=== PATIENT | female | born 1945 | race Caucasian/White ===

== ENCOUNTER 2018-02-03 12:39 | Inpatient (IN) | payer OTHER ==
[~2018-02-03] VITALS: Ht 167.6 cm; Wt 71.0 kg
[~2018-02-03 12:39] MED LIST: ALBUTEROL2.5 MG/3 M INH/SOL; ARICEPT10 M1 PO; ATIVAN1 M1 PO; ATORVASTATIN CA20 M1 PO; B-12500 MC1 PO; BUPROPION XL300 M1 PO; COLACE100 M1 PO; DITROPAN XL5 M1 PO; DULOXETINE HCL60 MG PO; FLONASE ALLERG9.9 ML NASB; GABAPENTIN300 M2 PO; LIDODERM1 EACH TOP; LISINOPRIL5 M1 PO; MECLIZINE HCL12.5 M1 PO; NASONEX0.05 MG/Ac NAS; OMEPRAZOLE40 M1 PO; OXYCODONE HCL10 M2 PO; PRAVACHOL40 M1 PO; PROPRANOLOL HCL10 M1 PO; REQUIP2 M1 PO; TRAMADOL50 MG PO; TRAZODONE HCL100 M1 PO
--- NOTE | 2018-02-03 12:48 | ED MVC/FALL/TRAUMA COMPLAINT ---
History of Present Illness General Chief Complaint: Syncope and Near-Syncope Stated Complaint: NEAR SYNCOPE Source: patient, old records, EMS Exam Limitations: dementia Vital Signs & Intake/Output Vital Signs & Intake/Output Vital Signs Date Time Temp Pulse Resp B/P B/P Pulse O2 O2 Flow FiO2 Mean Ox Delivery Rate 02/03 1723 97.7 73 16 95/54 97 Room Air 02/03 1508 78 20 92/50 96 Room Air 02/03 1422 75 20 80/60 96 Room Air 02/03 1335 84/42 02/03 1249 74/42 02/03 1245 96 02/03 1244 97.7 77 18 83/42 94 Room Air Reconcile Medications Acetaminophen (Acephen) 650 MG SUPP.RECT 1 SUPP HI Q6H PRN PAIN/TEMP>101 ( Reported) Acetaminophen 325 MG TABLET 2 TAB PO Q6H PRN PAIN/TEMP>101 (Reported) Acetaminophen (Pain Reliever) 325 MG TABLET 2 TAB PO DAILY PAIN (Reported) Albuterol Sulfate 2.5 MG/3 ML (0.083 %) VIAL.NEB 1 Vial INH/ANDREIA Q6H PRN WHEEZING (Reported) Atorvastatin Calcium (Lipitor) 10 MG TABLET 1 TAB PO DAILY CHOLESTEROL ( Reported) Benzocaine (Anbesol) (Unknown Strength) LIQUID (Unknown Dose) PO 4XDAILY PRN GUMS (Reported) Bisacodyl (Dulcolax) 10 MG SUPP.RECT 1 SUP RC DAILY PRN CONSTIPATION ( Reported) Bupropion HCl (Bupropion XL) 300 MG TAB.ER.24H 1 TAB PO QAM MENTAL HEALTH ( Reported) Dextran 70/Hypromellose (Artificial Tears) (Unknown Strength) DROPERETTE ( Unknown Dose) OU TID BOTH EYES (Reported) Donepezil HCl (Aricept) 10 MG TABLET 1 TAB PO 0900 DEMENTIA (Reported) Duloxetine HCl 60 MG CAPSULE.DR 1 CAP PO DAILY MENTAL HEALTH (Reported) Ergocalciferol (Vitamin D2) (Vitamin D2) 50,000 UNIT CAPSULE 1 CAP PO Q30D SUPPLEMENT (Reported) Fluticasone Propionate (Flonase Allergy Relief) 50 MCG/ACTUATION SPRAY.SUSP 2 SPRAY NASB DAILY ALLERGIES (Reported) Gabapentin 300 MG CAPSULE 1 CAP PO QPM SLEEP (Reported) Hyoscyamine Sulfate (Levsin-Sl) 0.125 MG TAB.SUBL 1 TAB SL TID TREMORS ( Reported) Lidocaine (Lidoderm) 5 % ADH..PATCH 1 PAT TOP DAILY PAIN (Reported) may wear up to 12 hours Lisinopril 5 MG TABLET 1 TAB PO DAILY BP (Reported) LORazepam (Ativan) 1 MG TABLET 1 TAB PO TID ANXIETY (Reported) Mag Carb/Al Hydrox/Alginic AC (Gaviscon Extra Strength Liquid) (Unknown Strength ) ORAL.SUSP (Unknown Dose) PO Q6H PRN INDIGESTION (Reported) Meclizine HCl 12.5 MG TABLET 1 TAB PO BID DIZZINESS (Reported) Na Phos,M-B/Na Phos,Di-Ba (Fleet Enema) 19 GRAM-7 GRAM/118 ML ENEMA 1 E RC DAILY PRN CONSTIPATION (Reported) Naloxone HCl (Narcan) 4 MG/ACTUATION SPRAY 1 SPRAY JUAN AD PRN OPIOID INDUCED RESP. DEPRESSIO (Reported) Omeprazole 40 MG CAPSULE.DR 1 CAP PO DAILY ACID REFLUX (Reported) Oxycodone HCl 10 MG TABLET 1 TAB PO Q8 PAIN (Reported) Polyethylene Glycol 3350 (Miralax) 17 GRAM POWD.PACK 1 PAC PO DAILY GI ( Reported) dissolve in water Propranolol HCl 10 MG TABLET 1 TAB PO TID HTN (Reported) Ropinirole HCl (Requip) 2 MG TABLET 1 TAB PO QPM RESTLESS LEGS (Reported) Sennosides (Senna) 8.6 MG TABLET 1 TAB PO DAILY GI (Reported) Sodium Chloride (Nasal Moisturizing) 0.65 % SPRAY 1 SPRAY NASB TID PRN NASAL DRYNESS (Reported) Trazodone HCl 100 MG TABLET 1 TAB PO QPM SLEEP (Reported) Triage Note: PT STATES SHE TOOK HERSELF TO THE BATHROOM IN THE [facility] AND LOST HER BALANCE AND HIT HER HAD ON THE DOOR. BS 119 PER EMS. PT DID NOT MAKE STAFF AWARE THAT SHE HIT HER HEAD. STAFF NOTED SHE HAS BRUISE TO RIGHT EYEBROW. Triage Nurses Notes Reviewed? yes Onset: Abrupt Duration: day(s): (1), constant Timing: recent history Severity: mild, moderate Severity Numbers: 1 Injuries/Fall Location: face Method of Injury: fall Loss of Consciousness: unsure No Modifying Factors: none Associated Symptoms: denies HPI: 72 year-old female with past medical history significant for dementia, Meniere's disease, and essential tremor biba s/p unwitnessed fall at [facility]. pt presents with hematoma to r side of face. she denies pain from fall. on arrival pt noted to be hypotensive however awake. she denies chest pain, abd pain, arm or lower extremity injury. unsure of loc. (Joe Blankenship) Allergies Coded Allergies: divalproex sodium (From DEPAKOTE) (UNKNOWN PER W-10 02/03/18) doxycycline (UNKNOWN 05/18/17) Uncoded Allergies: MOLD (UNKNOWN 06/11/12) (Murphy Reyna DO) Past History Travel History Traveled to [place] past 21 day No Medical History Any Pertinent Medical History? see below for history Neurological: dementia EENT: MENIERES DISEASE Respiratory: SOB Renal: OVERACTIVE BLADDER Musculoskeletal: falls Cancer(s): lung cancer History of MRSA: No History of VRE: No History of CDIFF: No Pneumonia Vaccine: 07/08/10 Influenza Vaccine: 07/08/10 Surgical History Surgical History: non-contributory Psychosocial History Who do you live with Daughter Services at Home Nursing What is your primary language Indonesian Tobacco Use: Quit >30 days ago ETOH Use: denies use Illicit Drug Use: denies illicit drug use Family History Family History, If Any: MOTHER ( mother had pancreatic cancer father had stroke and MD). Hx Contributory? No (Joe Blankenship) Review of Systems Review of Systems Constitutional: Reports: no symptoms, see HPI. Comments Review of systems: unobtainable secondary to dementia (Joe Blankenship) Physical Exam Physical Exam General Appearance: no apparent distress Comments: Well-developed well-nourished person in no acute distress HEENT: Normal EENT exam; PERRL, EOMI, no nystagmus. Small hematoma noted to the right lateral eyebrow no bleeding versus scalp is atraumatic. moist mucous membranes. Neck: Supple, nontender normal range of motion without pain or tenderness Back: Nontender, no CVA tenderness. Full range of motion Cardiovascular: Regular rate and rhythms no murmurs rubs or gallops, normal JVP Respiratory: Chest nontender.There were no bony deformities, no asymmetry. No respiratory distress. Patient speaking in full complete sentences. Breath sounds clear to auscultation bilaterally: NO W/R/R Abdomen: Soft, nontender nondistended, no appreciable organomegaly. Normal bowel sounds. No rebound/guarding, No appreciable enlargement of the abdominal aorta, No ascites. Rectal: Nontender. Heme negative stool. No mass/hemorrhoid, no fissure. Shoulder: Atraumatic/Stable. FROM . Elbow: Atraumatic/stable. FROM. No laxity Upper arm/Forearm: Atraumatic. Nontender. No edema, 5 out of 5 machine striper strength noted to bilateral upper extremities Hand/Wrist: Atraumatic/stable. Skin intact. FROM Pulses: Normal/equal radial pulses bilaterally. Brisk cap refill Hip/Pelvis: Atraumatic/Stable. FROM. No pain with pelvic compression Knee: Atraumatic/stable. FROM. No joint swelling, no effusion. No laxity. Negative fernando/anterior drawer test. No pain with ROM Leg: Atraumatic. Nontender. No edema, 5 out of 5 strength in the lower extremity, normal dorsiflexion of great toe bilaterally, gross sensation is intact, patellar tendon reflex 2+ bilaterally. Ankle/Foot: Atraumatic/stable. Skin intact. FROM. No swelling, no effusion. No laxity on exam Pulses: Normal/equal DP/PT pulses bilaterally. Brisk cap refill Neuro: Alert oriented x3, motor sensory normal, cranial nerves II through XII grossly intact. There were no obvious focal neurologic abnormalities. Skin: No appreciable rash on exposed skin, skin is warm and dry. Psych: Mood and affect is normal, memory and judgment is normal. Core Measures ACS in differential dx? Yes CVA/TIA Diagnosis No Sepsis Present: No Sepsis Focused Exam Completed? No (Dianne LOZANO,Joe) Progress Differential Diagnosis: abd injury, C/T/L spine injury, ext injury, ICH, pelvis injury, spinal cord injury, GI BLEED, DEHYDRATION, MILAN Plan of Care: Orders Procedure Date/time Status Nothing by Mouth 02/04 B Active ICU LAB BUNDLE 02/04 0600 Active CBC WITHOUT DIFFERENTIAL 02/04 0600 Active TROPONIN LEVEL 02/03 1900 Active CBC WITHOUT DIFFERENTIAL 02/03 1900 Active EKG 02/03 1900 Active Pathway - chart 02/03 1851 Active Pathway - chart 02/03 1702 Active Pathway - chart 02/03 1701 Active Patient Data 02/03 1635 Active ED Holding Orders 02/03 1623 Active Admit to inpatient 02/03 1623 Active Vital Signs 02/03 1623 Active Code Status 02/03 1623 Active Patient Data 02/03 1620 Active Bolanos, Insertion/Removal/Asses 02/03 1432 Active Add-on Test (ER Only) 02/03 1324 Active TYPE & SCREEN (NOT X-MATCH) 02/03 1324 Complete Intake & Output 02/03 1303 Active Saline Lock 02/03 1256 Active CULTURE,URINE 02/03 1256 Active URINE DRUG SCREEN FOR ER ONLY 02/03 1256 Complete PROTHROMBIN TIME 02/03 1253 Complete URINALYSIS 02/03 1247 Complete Telemetry/Scrum Product Owner 02/03 1242 Active TROPONIN LEVEL 02/03 1242 Complete COMPREHENSIVE METABOLIC PANEL 02/03 1242 Complete CBC WITHOUT DIFFERENTIAL 02/03 1242 Complete EKG 02/03 1242 Active Saline Lock 02/03 UNK Active House Staff 02/03 UNK Active VTE Mechanical Prophylaxis 02/03 UNK Active Patient Safety Monitor 02/03 UNK Active Hemoccult 02/03 UNK Active EKG 02/03 UNK Active Current Medications Sig/Lloyd Start time Last Medication Dose Stop Time Status Admin Atorvastatin Calcium 10 MG DAILY 02/04 0900 AC (Lipitor) Donepezil HCl 10 MG 0900 02/04 0900 AC (Aricept) Gabapentin 300 MG QPM 02/03 2100 AC (Neurontin) Lorazepam 1 MG TID 02/03 2100 AC (Ativan) Meclizine HCl 12.5 MG BID 02/03 2100 AC (Antivert) Lidocaine 1 PAT DAILY@1900 02/03 1900 AC (Lidoderm) Acetaminophen 650 MG Q6H PRN 02/03 1845 AC (Tylenol) Sodium Chloride 1,000 ML Q13H 02/03 1800 AC (Normal Saline 0.9%) Pantoprazole Sodium 40 MG Q5H 02/03 1715 AC (Protonix) Sodium Chloride 100 ML (Normal Saline 0.9%) Phytonadione 5 MG DAILY 02/03 170 AC (Mephyton 5MG Tab) Laboratory Tests 02/03/18 1504: Urine Opiates Screen 1095.00, Methadone Screen 106, Barbiturate Screen < 60, Ur Phencyclidine Scrn 9.80, Amphetamines Screen 894, U Benzodiazepines Scrn < 85, Urine Cocaine Screen < 50, Urine Cannabis Screen < 5.00, Urinalysis LIGHT H, Urine Color YEL, Urine Clarity HAZY H, Urine pH 6.0, Ur Specific [place] >= 1.030, Urine Protein TRACE H, Urine Ketones NEG, Urine Nitrite NEG, Urine Bilirubin NEG, Urine Urobilinogen 0.2, Ur Leukocyte Esterase TRACE H, Ur Microscopic SEDIMENT EXAMINED, Urine RBC 1-3, Urine WBC 1-3 H, Ur Epithelial Cells FEW, Hyaline Casts FEW H, Urine Mucus MOD H, Urine Hemoglobin TRACE- INTACT, Urine Glucose NEG 02/03/18 1351: PT 14.1 H, INR 1.29 H 02/03/18 1253: Anion Gap 12, Estimated GFR 26 L, BUN/Creatinine Ratio 20.0, Glucose 110 H, Calcium 9.0, Total Bilirubin 0.3, AST 13 L, ALT 23, Alkaline Phosphatase 102, Troponin I < 0.01, Total Protein 5.1 L, Albumin 2.4 L, Globulin 2.7, Albumin/ Globulin Ratio 0.9 L, CBC w Diff NO MAN DIFF REQ, RBC 3.21 L, MCV 75.7 L, MCH 24.0 L, MCHC 31.8 L, RDW 17.7 H, MPV 7.8, Gran % 75.4 H, Lymphocytes % 14.3 L, Monocytes % 8.0, Eosinophils % 1.6, Basophils % 0.7, Absolute Granulocytes 10.1 H, Absolute Lymphocytes 1.9, Absolute Monocytes 1.1 H, Absolute Eosinophils 0.2, Absolute Basophils 0.1 Microbiology 02/03 1504 URINE ROUT: Urine Culture - RECD Labs ordered old records reviewed (Patient seen and evaluated by Dr. reyna-- IV fluids running call placed to GI patient is a Jehovah witness and his declining any blood products 1330 I spoke with [facility] pts daughter eloina over the phone to update her of her mothers care- dr reyna spoke with dr prince who advised pt be admitted to icu. pending ct scans 1545- DR prince in room to eval pt.i spoekw ith dr concepcion will admit to icu Diagnostic Imaging: Viewed by Me: CT Scan. Discussed w/RAD: CT Scan. Radiology Impression: PATIENT: HILDA GORDON PRESENT AGE: 72 PATIENT ACCOUNT NO: [id number] : 44 LOCATION: [facility] ORDERING PHYSICIAN: Joe LOZANO SERVICE DATE: 02/03/18 EXAM TYPE: CAT - CT CERV SPINE WO IV CONTRAST; CT HEAD WO IV CONTRAST EXAMINATION: CT HEAD AND CERVICAL SPINE WITHOUT CONTRAST CLINICAL INFORMATION: History of fall. Dementia. Trauma to the head. COMPARISON: CT of the head done on 02/13/[address] of the cervical spine done on 03/25/2013. TECHNIQUE: Noncontrast CT scan of the head and cervical spine, using standard protocol. Multiplanar reconstructed images are obtained. Multiplanar reconstructed images are also obtained. DLP: 614.25 mGy-cm. FINDINGS: CT OF THE HEAD: Age-appropriate mild diffuse cortical atrophy and mild chronic microvascular deep white matter ischemic changes are present. Specifically, no evidence of intra-axial mass, mass effect, extra-axial fluid collection, midline shift, acute intraparenchymal hemorrhage and/or acute infarction present. Both orbital globes, extraocular muscles, optic nerves appear bilaterally symmetric and are unremarkable. The bilateral mastoid air cells appear unremarkable. CT OF THE CERVICAL SPINE: Grade 1 anterolisthesis of C5 over C6 is noted. Unchanged since prior study dated 03/25/2013. Mild-to- moderate mid cervical dextroscoliosis is noted. Multilevel degenerative spondylosis-related changes are noted throughout the entire cervical spine. Significant facet joint arthritic changes are noted bilaterally throughout the entire cervical spine. There is no evidence of any fracture or traumatic subluxation present. There is no prespinal soft tissue hematoma seen. The visualized lung apices are remarkable for presence of a nonspecific irregular ill-defined spiculated opacity seen at left lung apex, not optimally characterized. Followup chest radiograph may be considered for further clarification, if clinically appropriate. IMPRESSION: 1. No acute intracranial pathology. 2. No CT evidence of any acute fracture or traumatic subluxation or prespinal soft tissue hematoma present at the cervical spine. 3. Abnormal left lung apex. Followup chest radiograph may be considered for further full detailed evaluation, if clinically appropriate. DICTATED BY: Wan Jones MD DATE/TIME DICTATED:02/03/181457 CLAIM APPROVER:LB DATE/TIME TRANSCRIBED:1457 CONFIDENTIAL, DO NOT COPY WITHOUT APPROPRIATE AUTHORIZATION. < Electronically signed in Other Vendor System> SIGNED BY: Wan Jones MD 02/03/18 1528, PATIENT: HILDA GORDON PRESENT AGE: 72 PATIENT ACCOUNT NO: [id number] : 44 LOCATION: [facility] ORDERING PHYSICIAN: Joe LOZANO SERVICE DATE: 02/03/18 EXAM TYPE: CAT - CT ABD & PELVIS W/O IV CONTRAS; CT CHEST WO IV CONTRAST EXAMINATION: CT CHEST, ABDOMEN AND PELVIS WITHOUT CONTRAST CLINICAL INFORMATION: Dementia. Status post fall. Trauma to the head. COMPARISON: CT of the chest done on 02/15/[address] of the abdomen and pelvis done on 03/25/2013. TECHNIQUE: Multidetector volumetric imaging was performed from the thoracic inlet through the pubic symphysis without administration of any contrast. DLP: 696.8 mGy-cm. FINDINGS: VISUALIZED NECK: Unremarkable. LUNGS: There is a spiculated 4.1 x 1.4 cm mass identified at left lung apex, previously measured 3.1 x 1.7 cm on the study dated 02/15/2017, consistent with interval progression of presumed clinically known left upper lobar lung neoplasm. The second lobulated oval-shaped mass seen at left lower lobe of the lung currently measures 3.5 x 3.4 cm, previously measured 3.1 x 2.1 cm, also consistent with interval progression of presumed metastatic or second primary lung neoplasm. There is a tiny 3 to 4 mm solid-appearing nodule identified adjacent to this dominant mass, unchanged. The tracheobronchial tree appeared patent. Hypoventilatory changes are noted at both lung bases. MEDIASTINUM: Atherosclerotic disease including coronary arterial calcifications are noted, similar to prior study. There are no pathologically enlarged mediastinal and/or hilar lymphadenopathy present. Lobulated anterior mediastinal soft tissue density likely represents a vessel, unchanged. PLEURA: There is no pleural effusion. No pleural mass or thickening. AXILLA: No lymphadenopathy LIVER, GALLBLADDER, BILIARY TREE: Unremarkable on this nonenhanced study. PANCREAS: Unremarkable on this nonenhanced study. SPLEEN: Unremarkable. ADRENAL GLANDS AND KIDNEYS: Multiple cortical renal cysts are noted. The left kidney appears electively atrophied, unchanged. URETERS AND BLADDER: Unremarkable. BOWEL LOOPS: Decompressed. Colonic diverticulosis is present. LYMPHOVASCULAR STRUCTURES: No pathologically enlarged retroperitoneal, mesenteric, pelvic, inguinal and/or groin lymphadenopathy present, unchanged. PELVIS: There is no pelvic mass present. There is no free fluid and/or free air present. Specifically, no evidence of any hematoma present. BONES: Interval development of a healing fracture identified involving the posterior medial aspect of the left 6th rib, new since 02/15/2017. Differential includes posttraumatic versus metastatic pathological fracture. IMPRESSION: 1. Technically limited study due to lack of intravenous contrast. 2. Previously documented, clinically known presumed primary left upper lobar lung neoplasm and a second primary versus intrapulmonary metastatic disease within the left lower lobe of the lung shows interval progression since most recent prior study dated 02/15/2017. 3. No CT evidence of any superimposed acute intrathoracic or intra-abdominal or intrapelvic pathology is present. 4. Note is, however, made of a new healing fracture involving posteromedial aspect of the left 6th rib, may represent posttraumatic versus pathological fracture. DICTATED BY: Wan Jones MD DATE /TIME DICTATED:02/03/181508 CLAIM APPROVER:LB DATE/TIME TRANSCRIBED: 02/03/181508 CONFIDENTIAL, DO NOT COPY WITHOUT APPROPRIATE AUTHORIZATION. < Electronically signed in Other Vendor System> SIGNED BY: Wan Jones MD 02/03/18 1541 Initial ED EKG: normal intervals, normal p-waves, normal QRS complex, normal sinus rhythm Prior EKG: unchanged Rhythm Strip: normal sinus rhythm (Joe Blankenship) Departure Departure Time of Disposition: 1547 Disposition: STILL A PATIENT Condition: Stable Clinical Impression Primary Impression: GI bleed Secondary Impressions: MILAN (acute kidney injury), Fall, Lung mass Referrals: Clara Mccarthy MD (PCP/Family) Departure Forms: Customer Survey General Discharge Information Admission Note Spoke With: Woodrow Concepcion MD Documentation of Exam: Documentation of any treatments & extenuating circumstances including Concerns Regarding Discharge (functional status, medication knowledge or non-compliance, living conditions, etc.) that warrant an admission rather than observation: GI CONSULT, PROB ENDOSCOPY/COLONOSCOPY, TREND LABS, IV FLUIDS, PREMATURE DISCHARGE WOULD BE MEDICALLY HARMFUL (Joe Blankenship) Departure Comments 02/03/18 1:40 PM I have seen and personally examined the patient and I agree with the PAs evaluation. She presented to the emergency department hypotensive after a near syncopal episode at the [facility]. She is pleasantly confused but hypotensive. Abdomen is soft and nontender. She was guaiac positive. She has a hemoglobin of 7. I spoke with Dr. Herndon who will be in to evaluate the patient. She is a Yarsani and after speaking with the family they confirm that she is full code but not to have any blood products. PA/CANOPY INSPECTOR Co-Sign Statement Statement: ED Attending supervision documentation- [x] I saw and evaluated the patient. I have also reviewed all the pertinent lab results and diagnostic results. I agree with the findings and the plan of care as documented in the PA's/CANOPY INSPECTOR's documentation. [] I have reviewed the ED Record and agree with the PA's/CANOPY INSPECTOR's documentation. [] Additions or exceptions (if any) to the PAs/CANOPY INSPECTOR's note and plan are summarized below: [] (Axel AMEZCUA,Murphy Baumann) Critical Care Note Critical Care Note Critical Care Time: 30-74 min (Joe Blankenship)
[2018-02-03 13:07] LABS: ABSOLUTE BASOPHIL COUNT 0.1 /CUMM (0.0-0.2); ABSOLUTE EOSINOPHIL COUNT 0.2 /CUMM (0.0-0.7); ABSOLUTE GRANULOCYTE CT 10.1 /CUMM (1.4-6.5); ABSOLUTE LYMPH COUNT 1.9 /CUMM (1.2-3.4); ABSOLUTE MONOCYTE COUNT 1.1 /CUMM (0.10-0.60); BASOPHIL % 0.7 % (0.0-2.0); EOSINOPHIL % 1.6 % (0-5); GRANULOCYTE % 75.4 % (42.2-75.2); HEMATOCRIT 24.3 % (37-47); MEAN CORPUSCULAR HGB CONC 31.8 G/DL (33.0-37.0); MEAN CORPUSCULAR VOLUME 75.7 FL (81.0-99.0); MEAN PLATELET VOLUME 7.8 FL (7.4-10.4); PLATELET COUNT 435 /CUMM (130-400); RBC DISTRIBUTION WIDTH 17.7 % (11.5-14.5); RED BLOOD CELL CT 3.21 /CUMM (4.20-5.40); WHITE BLOOD CELL COUNT 13.4 /CUMM (4.8-10.8)
[2018-02-03] MEDS ORDERED: LIPITOR10 M1 PO (13:39)
[2018-02-03] MEDS ORDERED: ANBESOL12 ML PO (13:41)
[2018-02-03] MEDS ORDERED: GAVISCON EXTRA355 ML PO (13:44)
[2018-02-03] MEDS ORDERED: DULCOLAX10 M1 RC (13:45)
[2018-02-03] MEDS ORDERED: FLEET ENEMA133 ML RC (13:45)
[2018-02-03] MEDS ORDERED: LEVSIN-SL0.125 MG SL (13:46)
[2018-02-03] MEDS ORDERED: ALBUTEROL2.5 MG/3 M INH/SOL (13:52)
[2018-02-03] MEDS ORDERED: NASAL MOISTURIZ88 ML NASB (13:53)
[2018-02-03] MEDS ORDERED: ARTIFICIAL TEA1 EACH OU (13:53)
[2018-02-03] MEDS ORDERED: LISINOPRIL5 M1 PO (13:54)
[2018-02-03] MEDS ORDERED: MIRALAX17 G1 PO (13:55)
[2018-02-03] MEDS ORDERED: SENNA8.6 M3 PO (13:56)
[2018-02-03] MEDS ORDERED: REQUIP2 M1 PO (13:56)
[2018-02-03] MEDS ORDERED: VITAMIN D250000 UNIT PO (13:58)
[2018-02-03] MEDS ORDERED: ACEPHEN650 M1 PR (13:59)
[2018-02-03] MEDS ORDERED: ACETAMINOPHEN325 M2 PO (14:00)
[2018-02-03] MEDS ORDERED: PAIN RELIEVER325 MG PO (14:01)
[2018-02-03] MEDS ORDERED: NARCAN4 MG NAS (14:03)
[2018-02-03 14:26] LABS: PT 14.1 SEC (9.4-12.5)
--- NOTE | 2018-02-03 15:05 | Cons- Gastroenterology ---
See Addendum General Information and HPI Consulting Request Date of Consult: 02/03/18 Requested By: Dr. Pinzon Reason for Consult: 1. Acute blood loss anemia 2. Hemoccult positive stool 3. Syncope, presumably due to #1 4. Precipitous drop in hematocrit 5. Coagulopathy Source of Information: electronic medical record, emergency department physician Dr. Reyna Exam Limitations: unable to give history History of Present Illness: Patient is a 72-year-old female who was brought to [facility] from the [facility] after having had a syncopal episode. Patient is unable to provide history (due to dementia) so it is provided by the electronic medical record and Dr. Reyna, attending physician in the ED. Upon arrival in the ED patient was found to be orthostatic blood pressure. She had brown stool in the vault which was grossly Hemoccult positive. She had been found to have a marked decrease in her H&H as well as an increase in BUN/ creatinine. Patient last underwent colonoscopy in [address] Carlitos Orozco. She was found to have extensive left-sided diverticulosis as well as a small sessile polyp that was a benign tubular adenoma. She had an EGD in 2011 that was unremarkable. Biopsies were negative for H. Pylori. Additional PMH is significant for a history of falls, hyperlipidemia, and a personal history of adenomatous colonic polyps, hyperparathyroidism. Per the electronic medical record she was diagnosed adenocarcinoma of the left lung. PET/CT 06/03/2014: increased metabolic uptake in the left lower lung, as well as anterior mediastinal nodes and base of cecum versus stool, along with nonspecific uptake in the right scapula at the site of the patient's previous right shoulder replacement. However, biopsies from a bronchoscopy of that year were negative for malignant cells. The patient has a history of pancreatic cysts, with numerous endoscopic ultrasounds at [facility] by Dr. Zhang, last on 04/29/2012: 9 mm pancreatic cyst at the neck with side branch features of IPMN. I discussed with the daughter the status of Ms. Knight's lung cancer. The patient has not been seen by Dr. Sol since 2013. At that time a decision was made not to treat her lung cancer since the lesions were small and it was felt that the AcipHex of either chemotherapy or diffuse radiation therapy on her pulmonary status would far outweigh the benefits of either modality of therapy. The patient's daughter has recently tried to reestablish care with Dr. Salinas as patient has been complaining of chest pain. Patient has not had any hemoptysis. However she has not had a PET scan nor chest CT scans since 2013. Allergies/Medications Allergies: Coded Allergies: divalproex sodium (From DEPAKOTE) (UNKNOWN PER W-10 02/03/18) doxycycline (UNKNOWN 05/18/17) Uncoded Allergies: MOLD (UNKNOWN 06/11/12) Home Med List: Acetaminophen (Acephen) 650 MG SUPP.RECT 1 SUPP AR Q6H PRN PAIN/TEMP>101 ( Reported) Acetaminophen 325 MG TABLET 2 TAB PO Q6H PRN PAIN/TEMP>101 (Reported) Acetaminophen (Pain Reliever) 325 MG TABLET 2 TAB PO DAILY PAIN (Reported) Albuterol Sulfate 2.5 MG/3 ML (0.083 %) VIAL.NEB 1 Vial INH/ANDREIA Q6H PRN WHEEZING (Reported) Atorvastatin Calcium (Lipitor) 10 MG TABLET 1 TAB PO DAILY CHOLESTEROL ( Reported) Benzocaine (Anbesol) (Unknown Strength) LIQUID (Unknown Dose) PO 4XDAILY PRN GUMS (Reported) Bisacodyl (Dulcolax) 10 MG SUPP.RECT 1 SUP RC DAILY PRN CONSTIPATION ( Reported) Bupropion HCl (Bupropion XL) 300 MG TAB.ER.24H 1 TAB PO QAM MENTAL HEALTH ( Reported) Dextran 70/Hypromellose (Artificial Tears) (Unknown Strength) DROPERETTE ( Unknown Dose) OU TID BOTH EYES (Reported) Donepezil HCl (Aricept) 10 MG TABLET 1 TAB PO 0900 DEMENTIA (Reported) Duloxetine HCl 60 MG CAPSULE.DR 1 CAP PO DAILY MENTAL HEALTH (Reported) Ergocalciferol (Vitamin D2) (Vitamin D2) 50,000 UNIT CAPSULE 1 CAP PO Q30D SUPPLEMENT (Reported) Fluticasone Propionate (Flonase Allergy Relief) 50 MCG/ACTUATION SPRAY.SUSP 2 SPRAY NASB DAILY ALLERGIES (Reported) Gabapentin 300 MG CAPSULE 1 CAP PO QPM SLEEP (Reported) Hyoscyamine Sulfate (Levsin-Sl) 0.125 MG TAB.SUBL 1 TAB SL TID TREMORS ( Reported) Lidocaine (Lidoderm) 5 % ADH..PATCH 1 PAT TOP DAILY PAIN (Reported) may wear up to 12 hours Lisinopril 5 MG TABLET 1 TAB PO DAILY BP (Reported) LORazepam (Ativan) 1 MG TABLET 1 TAB PO TID ANXIETY (Reported) Mag Carb/Al Hydrox/Alginic AC (Gaviscon Extra Strength Liquid) (Unknown Strength ) ORAL.SUSP (Unknown Dose) PO Q6H PRN INDIGESTION (Reported) Meclizine HCl 12.5 MG TABLET 1 TAB PO BID DIZZINESS (Reported) Na Phos,M-B/Na Phos,Di-Ba (Fleet Enema) 19 GRAM-7 GRAM/118 ML ENEMA 1 E RC DAILY PRN CONSTIPATION (Reported) Naloxone HCl (Narcan) 4 MG/ACTUATION SPRAY 1 SPRAY JUAN AD PRN OPIOID INDUCED RESP. DEPRESSIO (Reported) Omeprazole 40 MG CAPSULE.DR 1 CAP PO DAILY ACID REFLUX (Reported) Oxycodone HCl 10 MG TABLET 1 TAB PO Q8 PAIN (Reported) Polyethylene Glycol 3350 (Miralax) 17 GRAM POWD.PACK 1 PAC PO DAILY GI ( Reported) dissolve in water Propranolol HCl 10 MG TABLET 1 TAB PO TID HTN (Reported) Ropinirole HCl (Requip) 2 MG TABLET 1 TAB PO QPM RESTLESS LEGS (Reported) Sennosides (Senna) 8.6 MG TABLET 1 TAB PO DAILY GI (Reported) Sodium Chloride (Nasal Moisturizing) 0.65 % SPRAY 1 SPRAY NASB TID PRN NASAL DRYNESS (Reported) Trazodone HCl 100 MG TABLET 1 TAB PO QPM SLEEP (Reported) Current Medications: Current Medications Sig/Lloyd Start time Last Medication Dose Route Stop Time Status Admin Sodium Chloride 1,000 ML BOLUS ONE 02/03 1430 AC 02/03 IV 02/03 1529 1425 Sodium Chloride 1,000 ML BOLUS ONE 02/03 1300 DC 02/03 IV 02/03 1359 1302 Past History Travel History Traveled to [place] past 21 day No Medical History Neurological: dementia EENT: MENIERES DISEASE Respiratory: SOB Renal: OVERACTIVE BLADDER Musculoskeletal: falls Cancer(s): lung cancer Surgical History Surgical History: non-contributory Family History Relations & Conditions If Any: MOTHER ( mother had pancreatic cancer father had stroke and VT). Psychosocial History Services at Home: Nursing ETOH Use: denies use Illicit Drug Use: denies illicit drug use Review of Systems Review of Systems: Today we'll to obtain review of systems given patient's dementia. Exam & Diagnostic Data Vital Signs and I&O Vital Signs Date Time Temp Pulse Resp B/P B/P Pulse O2 O2 Flow FiO2 Mean Ox Delivery Rate 02/03 1422 75 20 80/60 96 Room Air 02/03 1335 84/42 02/03 1249 74/42 02/03 1245 96 02/03 1244 97.7 77 18 83/42 94 Room Air Intake & Output 02/03 1600 02/03 0400 02/02 0400 02/01 0400 Intake Total 1000 Output Total Balance 1000 Intake, IV 1000 Patient 158 lb Weight Weight Estimated Measurement Method Physical Exam General Appearance: alert, awake, comfortable Head: atraumatic, normal appearance Eyes: Bilateral: normal appearance. Ears, Nose, Throat: hearing grossly normal, poor dentition Neck: normal inspection, supple Respiratory: normal breath sounds, no respiratory distress, lungs clear Cardiovascular: regular rate/rhythm Gastrointestinal: normal bowel sounds, soft, non-tender, no organomegaly Rectal: per ED, brown stool, hemoccult positive Neurologic/Psych: disoriented x 3 Cranial Nerves: normal hearing, normal speech, cranial nerves II-XII grossly intact Skin: intact, normal color, warm/dry Results Pertinent Lab Results: Laboratory Tests 02/03 02/03 1504 1351 Coagulation PT (9.4 - 12.5 SEC) 14.1 H INR (0.90 - 1.19) 1.29 H Toxicology Urine Opiates Screen (>2000 NG/ML) 1095.00 Methadone Screen (>300 NG/ML) 106 Barbiturate Screen (>200 NG/ML) < 60 Ur Phencyclidine Scrn (>25 NG/ML) 9.80 Amphetamines Screen (>1000 NG/ML) 894 U Benzodiazepines Scrn (>200 NG/ML) < 85 Urine Cocaine Screen (>300 NG/ML) < 50 Urine Cannabis Screen (>50 NG/ML) < 5.00 Urines Urinalysis LIGHT H Urine Color (YEL,AMB,STR) YEL Urine Clarity (CLEAR) HAZY H Urine pH (5.0 - 8.0) 6.0 Ur Specific Newton (1.001 - 1.035) >= 1.030 Urine Protein (NEG,<30 MG/DL) TRACE H Urine Ketones (NEG) NEG Urine Nitrite (NEG) NEG Urine Bilirubin (NEG) NEG Urine Urobilinogen (0.1 - 1.0 EU/dl) 0.2 Ur Leukocyte Esterase (NEG) TRACE H Ur Microscopic SEDIMENT EXAMINED Urine RBC (0 - 5 /HPF) 1-3 Urine WBC (0 - 2 /HPF) 1-3 H Ur Epithelial Cells (NONE,FEW) FEW Hyaline Casts (0/LPF) FEW H Urine Mucus (FEW,NONE) MOD H Urine Hemoglobin (NEG) TRACE-INTACT Urine Glucose (N MG/DL) NEG 02/03 1253 Chemistry Sodium (137 - 145 mmol/L) 142 Potassium (3.5 - 5.1 mmol/L) 4.2 Chloride (98 - 107 mmol/L) 108 H Carbon Dioxide (22 - 30 mmol/L) 22 Anion Gap (5 - 16) 12 BUN (7 - 17 mg/dL) 38 H Creatinine (0.5 - 1.0 mg/dL) 1.9 H Estimated GFR (>60 ml/min) 26 L BUN/Creatinine Ratio (7 - 25 %) 20.0 Glucose (65 - 99 mg/dL) 110 H Calcium (8.4 - 10.2 mg/dL) 9.0 Total Bilirubin (0.2 - 1.3 mg/dL) 0.3 AST (14 - 36 U/L) 13 L ALT (9 - 52 U/L) 23 Alkaline Phosphatase (<127 U/L) 102 Troponin I (< 0.11 ng/ml) < 0.01 Total Protein (6.3 - 8.2 g/dL) 5.1 L Albumin (3.5 - 5.0 g/dL) 2.4 L Globulin (1.9 - 4.2 gm/dL) 2.7 Albumin/Globulin Ratio (1.1 - 2.2 %) 0.9 L Hematology CBC w Diff NO MAN DIFF REQ WBC (4.8 - 10.8 /CUMM) 13.4 H RBC (4.20 - 5.40 /CUMM) 3.21 L Hgb (12.0 - 16.0 G/DL) 7.7 L Hct (37 - 47 %) 24.3 L MCV (81.0 - 99.0 FL) 75.7 L MCH (27.0 - 31.0 PG) 24.0 L MCHC (33.0 - 37.0 G/DL) 31.8 L RDW (11.5 - 14.5 %) 17.7 H Plt Count (130 - 400 /CUMM) 435 H MPV (7.4 - 10.4 FL) 7.8 Gran % (42.2 - 75.2 %) 75.4 H Lymphocytes % (20.5 - 51.1 %) 14.3 L Monocytes % (1.7 - 9.3 %) 8.0 Eosinophils % (0 - 5 %) 1.6 Basophils % (0.0 - 2.0 %) 0.7 Absolute Granulocytes (1.4 - 6.5 /CUMM) 10.1 H Absolute Lymphocytes (1.2 - 3.4 /CUMM) 1.9 Absolute Monocytes (0.10 - 0.60 /CUMM) 1.1 H Absolute Eosinophils (0.0 - 0.7 /CUMM) 0.2 Absolute Basophils (0.0 - 0.2 /CUMM) 0.1 Assessment/Plan Assessment/Recommendations: ASSESSMENT: 1. Acute drop in hemoglobin and hematocrit 2. Acute blood loss anemia, suspect upper GI bleed although patient had Hemoccult-positive stool which was brown is unusual to have syncope in this setting of a chronic slow lower GI bleed. One must also consider whether blood loss is related to underlying lung cancer. 3. Coagulopathy, mild 4. Lung Cancer, Status unknown 5. Dementia 6. Spiritism RECOMMENDATIONS: 1. Protonix drip 2. Serial H&H 3. Transfuse as needed to keep H&H between 7 and 8 4. Vitamin K 5. Consider Chest CT given unknown status of lung cancer and patient's complaint of chest pains 6. I have discussed possible EGD with healthcare proxy. Pending results of EGD we'll consider colonoscopy. 7. NPO after midnight 8. EGD tomorrow. Daughter is Mar Harper Consult Acknowledgment - Thank you for your consult request.
--- NOTE | 2018-02-03 15:28 | CT SCAN REPORT ---
EXAMINATION: CT HEAD AND CERVICAL SPINE WITHOUT CONTRAST CLINICAL INFORMATION: History of fall. Dementia. Trauma to the head. COMPARISON: CT of the head done on 02/13/[address] of the cervical spine done on 03/25/2013. TECHNIQUE: Noncontrast CT scan of the head and cervical spine, using standard protocol. Multiplanar reconstructed images are obtained. Multiplanar reconstructed images are also obtained. DLP: 614.25 mGy-cm. FINDINGS: CT OF THE HEAD: Age-appropriate mild diffuse cortical atrophy and mild chronic microvascular deep white matter ischemic changes are present. Specifically, no evidence of intra-axial mass, mass effect, extra-axial fluid collection, midline shift, acute intraparenchymal hemorrhage and/or acute infarction present. Both orbital globes, extraocular muscles, optic nerves appear bilaterally symmetric and are unremarkable. The bilateral mastoid air cells appear unremarkable. CT OF THE CERVICAL SPINE: Grade 1 anterolisthesis of C5 over C6 is noted. Unchanged since prior study dated 03/25/2013. [id number] mid cervical dextroscoliosis is noted. Multilevel degenerative spondylosis-related changes are noted throughout the entire cervical spine. Significant facet joint arthritic changes are noted bilaterally throughout the entire cervical spine. There is no evidence of any fracture or traumatic subluxation present. There is no prespinal soft tissue hematoma seen. The visualized lung apices are remarkable for presence of a nonspecific irregular ill-defined spiculated opacity seen at left lung apex, not optimally characterized. Followup chest radiograph may be considered for further clarification, if clinically appropriate. IMPRESSION: 1. No acute intracranial pathology. 2. No CT evidence of any acute fracture or traumatic subluxation or prespinal soft tissue hematoma present at the cervical spine. 3. Abnormal left lung apex. Followup chest radiograph may be considered for further full detailed evaluation, if clinically appropriate.
--- NOTE | 2018-02-03 15:41 | CT SCAN REPORT ---
EXAMINATION: CT CHEST, ABDOMEN AND PELVIS WITHOUT CONTRAST CLINICAL INFORMATION: Dementia. Status post fall. Trauma to the head. COMPARISON: CT of the chest done on 02/15/[address] of the abdomen and pelvis done on 03/25/2013. TECHNIQUE: Multidetector volumetric imaging was performed from the thoracic inlet through the pubic symphysis without administration of any contrast. DLP: 696.8 mGy-cm. FINDINGS: VISUALIZED NECK: Unremarkable. LUNGS: There is a spiculated 4.1 x 1.4 cm mass identified at left lung apex, previously measured 3.1 x 1.7 cm on the study dated 02/15/2017, consistent with interval progression of presumed clinically known left upper lobar lung neoplasm. The second lobulated oval-shaped mass seen at left lower lobe of the lung currently measures 3.5 x 3.4 cm, previously measured 3.1 x 2.1 cm, also consistent with interval progression of presumed metastatic or second primary lung neoplasm. There is a tiny 3 to 4 mm solid-appearing nodule identified adjacent to this dominant mass, unchanged. The tracheobronchial tree appeared patent. Hypoventilatory changes are noted at both lung bases. MEDIASTINUM: Atherosclerotic disease including coronary arterial calcifications are noted, similar to prior study. There are no pathologically enlarged mediastinal and/or hilar lymphadenopathy present. Lobulated anterior mediastinal soft tissue density likely represents a vessel, unchanged. PLEURA: There is no pleural effusion. No pleural mass or thickening. AXILLA: No lymphadenopathy LIVER, GALLBLADDER, BILIARY TREE: Unremarkable on this nonenhanced study. PANCREAS: Unremarkable on this nonenhanced study. SPLEEN: Unremarkable. ADRENAL GLANDS AND KIDNEYS: Multiple cortical renal cysts are noted. The left kidney appears electively atrophied, unchanged. URETERS AND BLADDER: Unremarkable. BOWEL LOOPS: Decompressed. Colonic diverticulosis is present. LYMPHOVASCULAR STRUCTURES: No pathologically enlarged retroperitoneal, mesenteric, pelvic, inguinal and/or groin lymphadenopathy present, unchanged. PELVIS: There is no pelvic mass present. There is no free fluid and/or free air present. Specifically, no evidence of any hematoma present. BONES: Interval development of a healing fracture identified involving the posterior medial aspect of the left 6th rib, new since 02/15/2017. Differential includes posttraumatic versus metastatic pathological fracture. IMPRESSION: 1. Technically limited study due to lack of intravenous contrast. 2. Previously documented, clinically known presumed primary left upper lobar lung neoplasm and a second primary versus intrapulmonary metastatic disease within the left lower lobe of the lung shows interval progression since most recent prior study dated 02/15/2017. 3. No CT evidence of any superimposed acute intrathoracic or intra-abdominal or intrapelvic pathology is present. 4. Note is, however, made of a new healing fracture involving posteromedial aspect of the left 6th rib, may represent posttraumatic versus pathological fracture.
--- NOTE | 2018-02-03 17:41 | History & Physical ---
General Information and HPI MD Statement: I have seen and personally examined HILDA ANDERSON and documented this H&P. The patient is a 72 year old F who presented with a patient stated chief complaint of [Syncopal episode]. Source of Information: electronic medical record, emergency department physician Dr. Reyna Exam Limitations: unable to give history History of Present Illness: Mrs. Anderson is a 72 yo lady with PMHx. of adenomatous colonic polyps, !? hyperparathyroidism, diagnosed adenocarcinoma of the left lung not on chemotherapy or radiotherapy, falls, hyperlipidemia, dementia, diverticulosis, Meniere's disease, and essential tremor brought in by ambulance from [facility] for low blood pressure. Obtaining history from the patient is challenging as she is confused and couldn' t answer question appropriately. I talked to [facility] nurse and she told that today they checked blood pressure and they found that it's in 90s systolic and then dropped to 80/50 mmHg , also patient was noticed to have bruise on the right eye, according to the nurse that the patient hit her head over the door frame and they don't know if the patient fell or she lost her consciousness. Patient herself remembers that she hit her head but she don't remember if she has syncopal episode. Patient is eating and drinking well. I also spoke to patient's daughter Lyn who report that patient use walker for fall risk but then they started to use wheelchair, patient's daughter is not aware of what happened exactly at the [facility]. In terms of lung cancer, she mentioned that the patient started to feel chest pain for about 2 months, chest x-ray was obtained at the [facility] with no itch urology defined, patient's daughter thinks that may be attributed to the lung cancer. Last time patient was seen by oncologist about 2 years ago and at that time the decision was made not to proceed with chemotherapy/radiotherapy as the risk outweigh benefits. Patient reports burning sensation when she passed urine, she also points to the suprapubic region and she mentioned that she had pain in this region which resolved during the encounter Patient herself denies any chest pain, shortness of breath, dizziness, headache, vision changes, nausea, vomiting, no abdominal pain, and there is no change in bowel habits Last colonoscopy was at 2013, last EGD at 2011. Allergies/Medications Allergies: Coded Allergies: divalproex sodium (From DEPAKOTE) (UNKNOWN PER W-10 02/03/18) doxycycline (UNKNOWN 05/18/17) Uncoded Allergies: MOLD (UNKNOWN 06/11/12) Home Med list Acetaminophen (Acephen) 650 MG SUPP.RECT 1 SUPP MS Q6H PRN PAIN/TEMP>101 ( Reported) Acetaminophen 325 MG TABLET 2 TAB PO Q6H PRN PAIN/TEMP>101 (Reported) Acetaminophen (Pain Reliever) 325 MG TABLET 2 TAB PO DAILY PAIN (Reported) Albuterol Sulfate 2.5 MG/3 ML (0.083 %) VIAL.NEB 1 Vial INH/ANDREIA Q6H PRN WHEEZING (Reported) Atorvastatin Calcium (Lipitor) 10 MG TABLET 1 TAB PO DAILY CHOLESTEROL ( Reported) Benzocaine (Anbesol) (Unknown Strength) LIQUID (Unknown Dose) PO 4XDAILY PRN GUMS (Reported) Bisacodyl (Dulcolax) 10 MG SUPP.RECT 1 SUP RC DAILY PRN CONSTIPATION ( Reported) Bupropion HCl (Bupropion XL) 300 MG TAB.ER.24H 1 TAB PO QAM MENTAL HEALTH ( Reported) Dextran 70/Hypromellose (Artificial Tears) (Unknown Strength) DROPERETTE ( Unknown Dose) OU TID BOTH EYES (Reported) Donepezil HCl (Aricept) 10 MG TABLET 1 TAB PO 0900 DEMENTIA (Reported) Duloxetine HCl 60 MG CAPSULE.DR 1 CAP PO DAILY MENTAL HEALTH (Reported) Ergocalciferol (Vitamin D2) (Vitamin D2) 50,000 UNIT CAPSULE 1 CAP PO Q30D SUPPLEMENT (Reported) Fluticasone Propionate (Flonase Allergy Relief) 50 MCG/ACTUATION SPRAY.SUSP 2 SPRAY NASB DAILY ALLERGIES (Reported) Gabapentin 300 MG CAPSULE 1 CAP PO QPM SLEEP (Reported) Hyoscyamine Sulfate (Levsin-Sl) 0.125 MG TAB.SUBL 1 TAB SL TID TREMORS ( Reported) Lidocaine (Lidoderm) 5 % ADH..PATCH 1 PAT TOP DAILY PAIN (Reported) may wear up to 12 hours Lisinopril 5 MG TABLET 1 TAB PO DAILY BP (Reported) LORazepam (Ativan) 1 MG TABLET 1 TAB PO TID ANXIETY (Reported) Mag Carb/Al Hydrox/Alginic AC (Gaviscon Extra Strength Liquid) (Unknown Strength ) ORAL.SUSP (Unknown Dose) PO Q6H PRN INDIGESTION (Reported) Meclizine HCl 12.5 MG TABLET 1 TAB PO BID DIZZINESS (Reported) Na Phos,M-B/Na Phos,Di-Ba (Fleet Enema) 19 GRAM-7 GRAM/118 ML ENEMA 1 E RC DAILY PRN CONSTIPATION (Reported) Naloxone HCl (Narcan) 4 MG/ACTUATION SPRAY 1 SPRAY JUAN AD PRN OPIOID INDUCED RESP. DEPRESSIO (Reported) Omeprazole 40 MG CAPSULE.DR 1 CAP PO DAILY ACID REFLUX (Reported) Oxycodone HCl 10 MG TABLET 1 TAB PO Q8 PAIN (Reported) Polyethylene Glycol 3350 (Miralax) 17 GRAM POWD.PACK 1 PAC PO DAILY GI ( Reported) dissolve in water Propranolol HCl 10 MG TABLET 1 TAB PO TID HTN (Reported) Ropinirole HCl (Requip) 2 MG TABLET 1 TAB PO QPM RESTLESS LEGS (Reported) Sennosides (Senna) 8.6 MG TABLET 1 TAB PO DAILY GI (Reported) Sodium Chloride (Nasal Moisturizing) 0.65 % SPRAY 1 SPRAY NASB TID PRN NASAL DRYNESS (Reported) Trazodone HCl 100 MG TABLET 1 TAB PO QPM SLEEP (Reported) Past History Travel History Traveled to [place] past 21 day No Medical History Neurological: dementia EENT: MENIERES DISEASE Respiratory: SOB Renal: OVERACTIVE BLADDER Musculoskeletal: falls Cancer(s): lung cancer History of MRSA: No History of VRE: No History of CDIFF: No Surgical History Surgical History: non-contributory Past Family/Social History Family History Relations & Conditions if any MOTHER ( mother had pancreatic cancer father had stroke and [place]). Psychosocial History Services at Home: Nursing ETOH Use: denies use Illicit Drug Use: denies illicit drug use Review of Systems Review of Systems Constitutional: Reports: no symptoms. EENTM: Reports: no symptoms. Cardiovascular: Reports: no symptoms. Respiratory: Reports: no symptoms. GI: Reports: no symptoms. Genitourinary: Reports: no symptoms. Musculoskeletal: Reports: no symptoms. Skin: Reports: no symptoms. Neurological/Psychological: Reports: no symptoms, confusion. Hematologic/Endocrine: Reports: no symptoms. Immunologic/Allergic: Reports: no symptoms. All Other Systems: Reviewed and Negative Exam & Diagnostic Data Last 24 Hrs of Vital Signs/I&O Vital Signs Date Time Temp Pulse Resp B/P B/P Pulse O2 O2 Flow FiO2 Mean Ox Delivery Rate 02/03 1723 97.7 73 16 95/54 97 Room Air 02/03 1508 78 20 92/50 96 Room Air 02/03 1422 75 20 80/60 96 Room Air 02/03 1335 84/42 02/03 1249 74/42 02/03 1245 96 02/03 1244 97.7 77 18 83/42 94 Room Air Intake & Output 02/03 1600 02/03 0800 02/03 0000 Intake Total 1000 Output Total Balance 1000 Intake, IV 1000 Patient 158 lb Weight Weight Estimated Measurement Method Last 24 Hrs of Labs/Herbie: Laboratory Tests 02/03/181945: Troponin I Pending, CBC w Diff NO MAN DIFF REQ, RBC 2.97 L, MCV 76.0 L, MCH 23.7 L, MCHC 31.2 L, RDW 17.4 H, MPV 8.0, Gran % 75.8 H, Lymphocytes % 14.5 L, Monocytes % 7.6, Eosinophils % 1.9, Basophils % 0.2, Absolute Granulocytes 9.1 H, Absolute Lymphocytes 1.7, Absolute Monocytes 0.9 H, Absolute Eosinophils 0.2, Absolute Basophils 0 02/03/18 1504: Urine Opiates Screen 1095.00, Methadone Screen 106, Barbiturate Screen < 60, Ur Phencyclidine Scrn 9.80, Amphetamines Screen 894, U Benzodiazepines Scrn < 85, Urine Cocaine Screen < 50, Urine Cannabis Screen < 5.00, Urinalysis LIGHT H, Urine Color YEL, Urine Clarity HAZY H, Urine pH 6.0, Ur Specific [place] >= 1.030, Urine Protein TRACE H, Urine Ketones NEG, Urine Nitrite NEG, Urine Bilirubin NEG, Urine Urobilinogen 0.2, Ur Leukocyte Esterase TRACE H, Ur Microscopic SEDIMENT EXAMINED, Urine RBC 1-3, Urine WBC 1-3 H, Ur Epithelial Cells FEW, Hyaline Casts FEW H, Urine Mucus MOD H, Urine Hemoglobin TRACE- INTACT, Urine Glucose NEG 02/03/18 1351: PT 14.1 H, INR 1.29 H 02/03/18 1253: Anion Gap 12, Estimated GFR 26 L, BUN/Creatinine Ratio 20.0, Glucose 110 H, Calcium 9.0, Total Bilirubin 0.3, AST 13 L, ALT 23, Alkaline Phosphatase 102, Troponin I < 0.01, Total Protein 5.1 L, Albumin 2.4 L, Globulin 2.7, Albumin/ Globulin Ratio 0.9 L, CBC w Diff NO MAN DIFF REQ, RBC 3.21 L, MCV 75.7 L, MCH 24.0 L, MCHC 31.8 L, RDW 17.7 H, MPV 7.8, Gran % 75.4 H, Lymphocytes % 14.3 L, Monocytes % 8.0, Eosinophils % 1.6, Basophils % 0.7, Absolute Granulocytes 10.1 H, Absolute Lymphocytes 1.9, Absolute Monocytes 1.1 H, Absolute Eosinophils 0.2, Absolute Basophils 0.1 Microbiology 02/03 1945 UPPER RESP: Surveillance Culture - RECD 02/03 1945 GI: Surveillance Culture - RECD 02/03 1504 URINE ROUT: Urine Culture - RECD Assessment/Plan Assessment: Mrs. Anderson is a 72 yo lady with PMHx. of adenomatous colonic polyps, !? hyperparathyroidism, diagnosed adenocarcinoma of the left lung not on chemotherapy or radiotherapy, falls, hyperlipidemia, dementia, diverticulosis, Meniere's disease, and essential tremor brought in by ambulance from [facility] for low blood pressure. Admitted for acute blood loss anemia and hypotension. Assessment: #Acute blood loss anemia #Hypotension #MILAN #UTI #adenocarcinoma of the left lung #dementia Plan: * Will admitt the patient to ICU * Patient seen by GI physician and the plan is for EGD at a.m. * She is a Jain and refused blood transfusion, that was also discussed with her daughter Lyn who also refused a blood transfusion * IV hydration with normal saline (Be cautious with crystalloid given low H&H) * Will repeat CBC at 7 pm, please call GI if Hgb<7 * Monitor hemodynamics, call gi if any overt bleeding * Ferrous sulfate BID * Will start IV Protonix drip * Will start the patient on iv ceftriaxone for UTI * We continue her home medications except lisinopril and propranolol. * NPO after midnight for EGD tomorrow * Oncology consult with Dr. Sol DVT prophylaxis Alps Full code As Ranked By This Provider Problem List: 1. Dementia 2. Lung mass 3. GI bleed 4. MILAN (acute kidney injury) Core Measures/Misc (05/28) Acute Coronary Syndrome ACS Diagnosis: No Congestive Heart Failure Congestive Heart Failure Diagnosis No Cerebrovascular Accident CVA/TIA Diagnosis: No VTE (View Protocol) VTE Risk Factors Acute Medical Illness No Mechanical VTE Prophylaxis d/t N/A MechProphylax Ordered No VTE Pharm Prophylaxis d/t Bleeding (Active) Sepsis (View protocol) Sepsis Present: No If YES complete Sepsis Event Note If YES complete Sepsis Event Note
--- NOTE | 2018-02-03 18:39 | PN- Att Addend ---
Attending Addendum Attending Brief Note 72F PMH dementia, Meniere's disease, and essential tremor presents with fall. Patient resides at [facility] and per family, has a history of recurrent falls due to poor balance. Fall was unwitnessed, patient hit her head on the ground and has a hematoma above her right eye. She feels well and has no complaints. Per family this is her baseline mental status. She was found to have Hgb of 7.7 down from baseline of 10 in October, also with MILAN. She is a Sikh and cannot receive blood products. No abdominal pain or tenderness, hemoccult positive brown stool on exam. Vitals stable. 1. GI bleed 2. Chronic blood loss anemia 3. Fall Plan - Admit to ICU - IV hydration - Monitor CBC - IV PPI - NPO - GI consult - Continue home medications - ALPS for DVT PPx
[2018-02-03 20:37] LABS: ABSOLUTE BASOPHIL COUNT 0 /CUMM (0.0-0.2); ABSOLUTE EOSINOPHIL COUNT 0.2 /CUMM (0.0-0.7); ABSOLUTE GRANULOCYTE CT 9.1 /CUMM (1.4-6.5); ABSOLUTE LYMPH COUNT 1.7 /CUMM (1.2-3.4); ABSOLUTE MONOCYTE COUNT 0.9 /CUMM (0.10-0.60); BASOPHIL % 0.2 % (0.0-2.0); EOSINOPHIL % 1.9 % (0-5); GRANULOCYTE % 75.8 % (42.2-75.2); HEMATOCRIT 22.5 % (37-47); MEAN CORPUSCULAR HGB 23.7 PG (27.0-31.0); MEAN CORPUSCULAR HGB CONC 31.2 G/DL (33.0-37.0); PLATELET COUNT 378 /CUMM (130-400); RBC DISTRIBUTION WIDTH 17.4 % (11.5-14.5); RED BLOOD CELL CT 2.97 /CUMM (4.20-5.40); WHITE BLOOD CELL COUNT 12.1 /CUMM (4.8-10.8)
[2018-02-04] VITALS: BP 88/70
[2018-02-04 05:38] LABS: ABSOLUTE BASOPHIL COUNT 0 /CUMM (0.0-0.2); ABSOLUTE EOSINOPHIL COUNT 0.2 /CUMM (0.0-0.7); ABSOLUTE GRANULOCYTE CT 6.7 /CUMM (1.4-6.5); ABSOLUTE LYMPH COUNT 1.7 /CUMM (1.2-3.4); ABSOLUTE MONOCYTE COUNT 0.6 /CUMM (0.10-0.60); BASOPHIL % 0.4 % (0.0-2.0); EOSINOPHIL % 2.3 % (0-5); GRANULOCYTE % 72.6 % (42.2-75.2); MEAN CORPUSCULAR HGB CONC 31.6 G/DL (33.0-37.0); MEAN PLATELET VOLUME 8.3 FL (7.4-10.4); PLATELET COUNT 314 /CUMM (130-400); RBC DISTRIBUTION WIDTH 17.7 % (11.5-14.5); RED BLOOD CELL CT 2.49 /CUMM (4.20-5.40); WHITE BLOOD CELL COUNT 9.2 /CUMM (4.8-10.8)
--- NOTE | 2018-02-04 06:04 | Event Note ---
Event Note Event Note: Patient's Hg dropped to 6.0, blood pressure remains around 80s-90s systolic. Patient refuses blood transfusion due to regligious beliefs. I spoke to Dr. Garcia and updated her on the situation. She recommended increasing fluid rate to 125mL/hr. We will recheck CBC in 6 hours.
[2018-02-04 08:00] VITALS: BP 90/52
--- NOTE | 2018-02-04 09:23 | PN- Resident CRCU ---
Subjective HPI/CRCU Issues: #Acute blood loss anemia #Hypotension #MILAN #UTI #adenocarcinoma of the left lung #dementia 24 Hour Events: Patient has been afebrile with a MAXIMUM TEMPERATURE of 97, normal sinus rhythm rate between 70-80 bpm, respiratory rate of 20, blood pressure initially was 96/ 50 gradually dropping to 80/50 She continues to be on room air and is saturating greater than 95%. She is awake, however not completely oriented to time place and person. Objective Vital Signs & I&O Last 8 Hrs of Vitals and I&O: Temperature 90.6 Heart rate 70-80 bpm Respiratory rate average of around 20. Blood pressure, around 7:30 AM 84/45. 95% saturation on room air. Exam General Appearance: well developed/nourished, awake, lethargic Head: atraumatic, normal appearance Ears, Nose, Throat: normal ENT inspection Neck: normal inspection, supple, Central line on the left side Respiratory: decreased breath sounds basally, no other adventitious sounds. Cardiovascular: regular rate/rhythm Gastrointestinal: normal bowel sounds Extremities: normal inspection, normal capillary refill, normal range of motion Skin: intact, pallor, cold/dry Skin Temp/Moisture Exam: Cool/Dry Sepsis Skin Exam (color): Pale Back: normal inspection, normal range of motion Sepsis Peripheral Pulse Location: Radial Sepsis Peripheral Pulse Exam: Normal Sepsis Cap Refill Exam: >2 sec IV Drips IV Drips: normal saline protonix Nutrition Nutrition: NPO Current Medications: Current Medications Sig/Lloyd Start time Last Medication Dose Route Stop Time Status Admin Acetaminophen 650 MG Q6H PRN 02/03 184 AC 02/03 PO 2033 Atorvastatin Calcium 10 MG DAILY 02/04 900 AC 02/04 PO 910 Bupropion HCl 300 MG QAM 02/04 900 AC 02/04 PO 909 Ceftriaxone Sodium 1,000 MG DAILY@02/03 AC 02/03 IV 2035 Donepezil HCl 10 MG 02/04 AC 02/04 PO 910 Duloxetine HCl 60 MG DAILY 02/04 900 AC 02/04 PO 909 Ferrous Sulfate 325 MG BID 02/03 2100 AC 02/04 PO 909 Gabapentin 300 MG QPM 02/03 PO 2033 Lidocaine 1 PAT DAILY@02/03 AC TOP Lorazepam 1 MG TID 02/03 PO 0911 Magnesium Sulfate 1 GM ONCE ONE 02/04 0930 AC 02/04 Dextrose/Water 100 ML IV 02/04 1329 0934 Meclizine HCl 12.5 MG BID 02/03 2100 AC 02/04 PO 0911 Pantoprazole Sodium 40 MG Q5H 02/03 1715 AC 02/04 Sodium Chloride 100 ML IV 1250 Phytonadione 5 MG DAILY 02/03 1705 AC 02/04 PO 0910 Potassium Chloride 10 MEQ Q1H 02/04 0930 DC 02/04 IV 02/04 1031 1139 Sodium Chloride 1,000 ML Q13H 02/03 1800 AC 02/04 IV 0610 Sodium Chloride 1,000 ML BOLUS ONE 02/03 1430 DC 02/03 IV 02/03 1529 1425 Sodium Chloride 1,000 ML BOLUS ONE 02/03 1300 DC 02/03 IV 02/03 1359 1302 Antibiotics Antibiotic: ceftrixone Day #: 1 CXR Findings: SERVICE DATE: 02/03/18 EXAM TYPE: CAT - CT ABD & PELVIS W/O IV CONTRAS; CT CHEST WO IV CONTRAST IMPRESSION: 1. Technically limited study due to lack of intravenous contrast. 2. Previously documented, clinically known presumed primary left upper lobar lung neoplasm and a second primary versus intrapulmonary metastatic disease within the left lower lobe of the lung shows interval progression since most recent prior study dated 02/15/2017. 3. No CT evidence of any superimposed acute intrathoracic or intra-abdominal or intrapelvic pathology is present. 4. Note is, however, made of a new healing fracture involving posteromedial aspect of the left 6th rib, may represent posttraumatic versus pathological fracture. SERVICE DATE: 02/03/18 EXAM TYPE: CAT - CT CERV SPINE WO IV CONTRAST; CT HEAD WO IV CONTRAST IMPRESSION: 1. No acute intracranial pathology. 2. No CT evidence of any acute fracture or traumatic subluxation or prespinal soft tissue hematoma present at the cervical spine. 3. Abnormal left lung apex. Followup chest radiograph may be considered for further full detailed evaluation, if clinically appropriate. EKG Findings: junctional rhythm, rate of 76, QTC of 419, regular, no ST-T wave changes. CT Scan Findings: as above Impression/Plan Impression/Problem List Impression: Mrs Johnson 2-year-old lady with past medical history of adenomatous colonic polyps, hyperparathyroidism, previously diagnosed left lung and no carcinoma ( never treated with chemotherapy or radiation), previous multiple falls, hyperlipidemia, dementia, diverticulosis, Mnire's disease, essential tremor was brought in by ambulance from [facility] as she was found to be hypotensive. Blood pressure at [facility] was found to be 80/50 mmHg. Upon arrival to emergency department she was afebrile, pulse of 78, respiration of 20, blood pressure was 84/42, she was 96% saturating on room air. Current labs : Last age of 7.0/22.5 (baseline), MCV of 76.0. UA showed trace leukocyte esterase was 1-3 WBCs. PT 14.1, INR 1.29. He was admitted to ICU for acute blood loss anemia. Problem List alongwith Assessment and plan : Respiratory 1. Untreated adenocarcinoma of the left lung 2. New healing fracture involving posteromedial aspect of the left 6th rib * CT chest showed a spiculated mass of 4.1 X and 0.4 cm in the left lung apex which has increased in size, second lobulated oval mass at the left lower lobe of the lung currently measuring 3.5 X 3.4 centimeter, also progressed in size. * The lung lesions were never biopsied therefore suspected presumed metastatic versus secondary primary lung neoplasm. * Continue to monitor saturations. * Currently saturating 96% on room * Oncology consult * PET scan , chemo radiation treatment, however of note patient had denied these treatments previously, never with recent discovery of mass in the GI, this could possibly be a metastatic disease from GI malignancy. * ct conservative mx and pain mx for 6th rib healing fracture. Infectious disease * Ceftriaxone was started for possible UTI, however the patient is stable with no white count, no signs of infection therefore discontinue antibiotic. * Continue to follow daily CBC, white count. Cardio * Echo 07/08/2010 EF of 55-60% * Two sets of troponin negative, EKG within normal limits. Metabolic 1. AK I 2. hypomg 3.hypok * Mild hypomagnesemia, hypokalemia, replete as needed. * Continue to monitor electrolytes. * Continue IV hydration, creatinine trended from 1.7-1.4. Hematology 1. Coagulopathy 2. Acute Blood loss anemia * Vit k X 1 given * ct to monitor coagulation functions. * Ct ot monitor H/H, current H/H 6.3/20.2 * Ct iv fluids to maintain blood pressure. * no blood transfusion as jehovah witness * EGD showed mass in the stomach, possible malignancy. Alimentary/GI * continue to monitor hematocrit and hemoglobin * ct IV fluids at the rate of 75 mL per hour. * she was initially started on Protonix drip. * She is a jehovah witness and would not want to receive any blood products even if it was an emergency situation and denies any form of blood products. * GI consult appreciated. * EGD with biopsy and control of bleeding performed on 02/04/2018, polypoid lesion/mass was found in the antrum and fundus of the stomach, suspected to be metastatic possible primary gastric malignancy, last EGD in 2011 and colonoscopy in 2013 were negative. * d/c Protonix drip and start IV Protonix. * keep patient nothing by mouth for today, can advance her diet tomorrow 2017 * Ct to follow biopsy report. * The patient does not want to receive chemotherapy, radiation therapy for the cancer, does not want to receive blood products as she is a Pentecostal, in this situation and goals of care need to be addressed with suspected metastatic lung disease possible primary from GI. Neuro * Dementia Diet * npo for now, advance tmrw DVT Px ALPS FC No blood products whatsoever. Problem List: 1. Lung mass 2. MILAN (acute kidney injury) 3. GI bleed 4. Dementia Pain Ratin Tomorrow's Labs & Rationales: cbc,icu bundle Plan DVT/Prophylaxis: mechanical Code Status: Full Code
[2018-02-04 11:05] LABS: ABSOLUTE BASOPHIL COUNT 0 /CUMM (0.0-0.2); ABSOLUTE EOSINOPHIL COUNT 0.1 /CUMM (0.0-0.7); ABSOLUTE LYMPH COUNT 1.2 /CUMM (1.2-3.4); ABSOLUTE MONOCYTE COUNT 0.5 /CUMM (0.10-0.60); MEAN CORPUSCULAR HGB 23.7 PG (27.0-31.0); MEAN CORPUSCULAR HGB CONC 31.2 G/DL (33.0-37.0)
[2018-02-04 11:10] LABS: ABSOLUTE GRANULOCYTE CT 6.3 /CUMM (1.4-6.5); BASOPHIL % 0.3 % (0.0-2.0); EOSINOPHIL % 1.4 % (0-5); GRANULOCYTE % 76.8 % (42.2-75.2); HEMATOCRIT 20.2 % (37-47); MEAN CORPUSCULAR VOLUME 75.8 FL (81.0-99.0); MEAN PLATELET VOLUME 7.7 FL (7.4-10.4); PLATELET COUNT 339 /CUMM (130-400); RBC DISTRIBUTION WIDTH 17.9 % (11.5-14.5); RED BLOOD CELL CT 2.66 /CUMM (4.20-5.40); WHITE BLOOD CELL COUNT 8.2 /CUMM (4.8-10.8)
--- NOTE | 2018-02-04 13:31 | PN- Pulmonary ---
Subjective HPI/Critical Care Issues: Stable Has dementia fatigue no pain Objective Current Medications: Current Medications Sig/Lloyd Start time Last Medication Dose Route Stop Time Status Admin Acetaminophen 650 MG Q6H PRN 02/03 1845 AC 02/03 PO 2033 Atorvastatin Calcium 10 MG DAILY 02/04 09 AC 02/04 PO 0911 Bupropion HCl 300 MG QAM 02/04 0900 AC 02/04 PO 0910 Ceftriaxone Sodium 1,000 MG DAILY@02/03 AC 02/03 IV 203 Donepezil HCl 10 MG 0900 02/04 0900 AC 02/04 PO 0911 Duloxetine HCl 60 MG DAILY 02/04 09 AC 02/04 PO 0910 Ferrous Sulfate 325 MG BID 02/03 2100 AC 02/04 PO 09 Gabapentin 300 MG QPM 02/03 2100 AC 02/03 PO 2033 Lidocaine 1 PAT DAILY@02/03 190 AC TOP Lorazepam 1 MG TID 02/03 2100 AC 02/04 PO 0911 Magnesium Sulfate 1 GM ONCE ONE 02/04 0930 AC 02/04 Dextrose/Water 100 ML IV 02/04 1329 0934 Meclizine HCl 12.5 MG BID 02/03 2100 AC 02/04 PO 0911 Pantoprazole Sodium 40 MG Q5H 02/03 1715 AC 02/04 Sodium Chloride 100 ML IV 1250 Phytonadione 5 MG DAILY 02/03 1705 AC 02/04 PO 0910 Potassium Chloride 10 MEQ Q1H 02/04 0930 DC 02/04 IV 02/04 1031 1139 Sodium Chloride 1,000 ML Q13H 02/03 1800 AC 02/04 IV 0610 Sodium Chloride 1,000 ML BOLUS ONE 02/03 1430 DC 02/03 IV 02/03 1529 1425 Sodium Chloride 1,000 ML BOLUS ONE 02/03 1300 DC 02/03 IV 02/03 1359 1302 Vital Signs & I&O Last 24 Hrs of Vitals and I&O: Vital Signs Date Time Temp Pulse Resp B/P B/P Pulse O2 O2 Flow FiO2 Mean Ox Delivery Rate 02/04 0800 95 Room Air 02/04 0800 97.3 86 23 90/52 95 Room Air 02/04 0400 99 Room Air 02/04 0000 95 Room Air 02/04 0000 97.0 70 20 88/70 95 Room Air 02/03 1723 97.7 73 16 95/54 97 Room Air 02/03 1508 78 20 92/50 96 Room Air 02/03 1422 75 20 80/60 96 Room Air 02/03 1335 84/42 Intake & Output 02/04 1600 02/04 0800 02/04 0000 Intake Total 810 360 Output Total 350 275 Balance 460 85 Intake, IV 810 360 Number 1 Bowel Movements Output, Urine 350 275 Patient 158 lb 158 lb Weight Weight Bed scale Bed scale Measurement Method Impression/Plan Impression/Plan Impression/Plan: General Appearance: alert, awake, comfortable Head: atraumatic, normal appearance Eyes: Bilateral: normal appearance. Ears, Nose, Throat: hearing grossly normal, poor dentition Neck: normal inspection, supple Respiratory: normal breath sounds, no respiratory distress, lungs clear Cardiovascular: regular rate/rhythm Gastrointestinal: normal bowel sounds, soft, non-tender, no organomegaly Rectal: per ED, brown stool, hemoccult positive Neurologic/Psych: disoriented x 3 Cranial Nerves: normal hearing, normal speech, cranial nerves II-XII grossly intact Skin: intact, normal color, warm/dry Mrs. Anderson is a 72 yo lady with PMHx. of adenomatous colonic polyps, !? hyperparathyroidism, diagnosed adenocarcinoma of the left lung not on chemotherapy or radiotherapy, falls, hyperlipidemia, dementia, diverticulosis, Meniere's disease, and essential tremor brought in by ambulance from [facility] for low blood pressure. Admitted for acute blood loss anemia and hypotension. Assessment: #Acute blood loss anemia #Hypotension better #Presyncope better #MILAN #UTI #adenocarcinoma of the left lung not on rx at this time #dementia #Recent fall REC COnt current meds REduce ivf and if stable hold and observe IV ppi GI to see DC abx and observe NPO for now Will follow
--- NOTE | 2018-02-04 14:58 | Proc Note Endoscopy ---
Endoscopy Procedure Medical History: unchanged Mental Status: alert/oriented Heart/Lung Eval Prior to Sedation: within normal limits Candidate for Sedation? Yes Procedure Date: 02/04/18 Procedure Type: EGD with biopsy and control of bleeding [employer]chandising Coordinator: MD Garcia Deborah E. ASA Classification: III Indications: 1. Blood loss anemia 2. Hemoccult-positive stool 3. Question epigastric pain Instrument: diagnostic gastroscope Meds Received: MAC Patient's Tolerance: good Complications: none Extent Reached: second part of duodenum Procedure: Note: Informed consent was obtained prior to procedure. Risks and benefits of procedure were discussed with patient's health care proxy, Nikhil Alvares. Potential complications discussed included perforation, bleeding, abdominal pain , and adverse reaction to medications. It was explained that iany or all of these complications could result in the need for extended hospitalization, emergency surgery, transfusion of packed red blood cells (with the risk of HIV or hepatitis virus), intubation with mechanical ventilation, and possible need for antibiotics. It was further explained that an existing tumor polyp or mucosal abnormality might not be identified at the time of the procedure thus resulting in a missed opportunity for early diagnosis and treatment of a gastrointestinal malignancy or disease with possible interval development of a gastrointestinal cancer or other disease with possible worsening of clinical condition in the interval between endoscopies. It was also discussed that complications are not limited to those listed above. Possible alternatives to endoscopic treatment or evaluation were discussed. All questions were answered. Patient is a Hinduism and refuses to accept blood transfusions. Continuous EKG and blood pressure monitors were attached. Supplemental oxygen was provided with O2 Sat monitoring. Patient was placed in the left lateral decubitus position. A surgical timeout was performed. All persons in the room were identified. All concerns were expressed and answered. A bite block was placed in the mouth and sedation was administered by anesthesia and titrated to comfort prior to starting the procedure. The Olympus upper endoscope was advanced under direct vision to the level of the third portion of the duodenum. Esophagus: The esophagus had a normal mucosal vascular pattern throughout its entirety. The GE junction was identified and was normal. The Z line was located at 5 cm from the incisors and was nondisplaced. Stomach: The stomach had a nodular pattern throughout the gastric body. Retroflexed view of the cardiofundic region revealed a normal mucosal and vascular pattern with the exception of a large hemorrhagic polypoid lesion on a stalk. It was biopsied but felt hard to the touch of the biopsy forceps. It had stigmata of bleeding with hemorrhagic spots and blood oozing from the base which appeared somewhat ulcerated. 2 mL of 1-10,000 epinephrine were injected into the base. There were normal rugae and normal distensibility. Within the antrum there was a second polypoid lesion on a broad stalk with an ulcerated and oozing mushroom-like. Multiple biopsies were obtained from this. 4 mL of epinephrine were injected around the base of this lesion. It was also treated with electrocautery for control of bleeding. The pylorus was patent and easily intubated. Biopsies were obtained from the antrum, angularis, gastric body and lesser curvature to rule out H. Pylori. Duodenum: The duodenum was fully examined from bulb down to the third portion. There was a normal mucosal vascular pattern throughout. With the endoscope in the forward-viewing position, it was slowly withdrawn and all areas were re-inspected and findings are as described previously. Patient tolerated the procedure well. EBL: 2ml Specimens Removed: 1. Polypoid lesion/mass antrum 2. Polypoid lesion/mass fundus Findings: 1. Polypoid lesion/mass antrum 2. Polypoid lesion/mass fundus Impression: There are 2 polypoid masses within the gastric lumen. These appear malignant. I presume these are metastatic lesions however they may represent a primary gastric malignancies. Patient last had EGD in 2011. Had negative colonoscopy in 2013. She also has a family history of pancreatic cancer and has known IPMN of side duct branches which has been followed in the past at [facility]. Recommendations: 1. Would check CEA and CA-[id number] 2. Continue Protonix drip 3. Await pathology 4. Consider repeat PET scan however given growth in known lung cancer as well as possibility of bony metastases as well as the fact that patient is unwilling to accept blood products one must seriously discuss hospice care. The lesions found in this patient's gastric lumen are likely to continue bleeding and as such she is likely to succumb to the effects of severe blood loss. Would give iron infusion. Will discuss with health care proxy. CC: Sweta CUEVA,Carlitos Fulton
[2018-02-04 16:00] VITALS: BP 108/58
[2018-02-04 22:22] LABS: ABSOLUTE BASOPHIL COUNT 0 /CUMM (0.0-0.2); ABSOLUTE EOSINOPHIL COUNT 0.1 /CUMM (0.0-0.7); ABSOLUTE GRANULOCYTE CT 7.2 /CUMM (1.4-6.5); ABSOLUTE LYMPH COUNT 1.4 /CUMM (1.2-3.4); ABSOLUTE MONOCYTE COUNT 0.7 /CUMM (0.10-0.60); BASOPHIL % 0.3 % (0.0-2.0); GRANULOCYTE % 76.7 % (42.2-75.2); MEAN CORPUSCULAR HGB 23.9 PG (27.0-31.0); MEAN CORPUSCULAR HGB CONC 31.5 G/DL (33.0-37.0); MEAN CORPUSCULAR VOLUME 75.9 FL (81.0-99.0); MEAN PLATELET VOLUME 7.9 FL (7.4-10.4); PLATELET COUNT 331 /CUMM (130-400); RBC DISTRIBUTION WIDTH 17.8 % (11.5-14.5); RED BLOOD CELL CT 2.57 /CUMM (4.20-5.40); WHITE BLOOD CELL COUNT 9.4 /CUMM (4.8-10.8)
[2018-02-04 22:28] LABS: HEMATOCRIT 19.5 % (37-47)
[2018-02-05] VITALS: BP 99/53
[2018-02-05 04:44] LABS: ABSOLUTE BASOPHIL COUNT 0 /CUMM (0.0-0.2); ABSOLUTE EOSINOPHIL COUNT 0.3 /CUMM (0.0-0.7); ABSOLUTE LYMPH COUNT 1.5 /CUMM (1.2-3.4); ABSOLUTE MONOCYTE COUNT 0.7 /CUMM (0.10-0.60); HEMATOCRIT 20.4 % (37-47); MEAN CORPUSCULAR HGB 23.8 PG (27.0-31.0)
[2018-02-05 04:52] LABS: ABSOLUTE GRANULOCYTE CT 7.4 /CUMM (1.4-6.5); BASOPHIL % 0.2 % (0.0-2.0); EOSINOPHIL % 2.6 % (0-5); GRANULOCYTE % 74.8 % (42.2-75.2); MEAN CORPUSCULAR HGB CONC 31.4 G/DL (33.0-37.0); MEAN CORPUSCULAR VOLUME 75.8 FL (81.0-99.0); MEAN PLATELET VOLUME 7.9 FL (7.4-10.4); PLATELET COUNT 362 /CUMM (130-400); WHITE BLOOD CELL COUNT 9.9 /CUMM (4.8-10.8)
[2018-02-05 08:00] VITALS: BP 112/57
--- NOTE | 2018-02-05 08:26 | PN- Housestaff ---
Subjective Follow-up For: #Possible gastric cencer #Acute blood loss anemia #Hypotension #MILAN #UTI #adenocarcinoma of the left lung #dementia Tele-Events Since Last Visit: Sinus rhythm
--- NOTE | 2018-02-05 10:02 | PN- Resident CRCU ---
Subjective HPI/CRCU Issues: # 2 polypoid masses within the gastric lumen. These appear malignant. #Acute blood loss anemia #Hypotension #MILAN #UTI #adenocarcinoma of the left lung #dementia 24 Hour Events: No events overnight MAXIMUM TEMPERATURE 98.9, she is in sinus rhythm with a rate of 78-92 bpm, RR 22 -26, blood pressure between 99/53 to 110/53 mmHg Today patient seen and examined, she is lying in the chair comfortable with no acute distress however she complained of suprapubic pain, she feels tired and having difficulty taking deep breath. Objective Vital Signs & I&O Last 8 Hrs of Vitals and I&O: As above Exam General Appearance: alert, awake, pale Head: atraumatic, normal appearance Neck: normal inspection, supple Respiratory: decreased breath sounds Cardiovascular: regular rate/rhythm Gastrointestinal: normal bowel sounds, soft, suprapubic tenderness Extremities: no edema Nutrition Nutrition: NPO Current Medications: Current Medications Sig/Lloyd Start time Last Medication Dose Route Stop Time Status Admin Acetaminophen 650 MG Q6H PRN 02/03 184 AC 02/04 PO 1834 Atorvastatin Calcium 10 MG DAILY 02/04 09 AC 02/05 PO 0817 Bupropion HCl 300 MG QAM 02/04 09 AC 02/05 PO 0817 Ceftriaxone Sodium 1,000 MG DAILY@02/03 DC 02/03 IV 203 Donepezil HCl 10 MG 0902/04 09 AC 02/05 PO 0817 Duloxetine HCl 60 MG DAILY 02/04 09 AC 02/05 PO 0817 Ferrous Sulfate 325 MG BID 02/03 2100 AC 02/05 PO 0817 Gabapentin 300 MG QPM 02/03 PO 2042 Lidocaine 1 PAT DAILY@02/03 190 AC 02/04 TOP 1801 Lorazepam 1 MG TID 02/03 2100 AC 02/05 PO 0817 Magnesium Sulfate 1 GM ONCE ONE 02/04 930 DC 02/04 Dextrose/Water 100 ML IV 02/04 1329 0934 Meclizine HCl 12.5 MG BID 02/03 PO 0816 Morphine Sulfate 1 MG Q6-PRN PRN 02/05 0045 AC 02/05 IV 0516 Oxycodone HCl 5 MG Q6 PRN 02/05 0015 AC 02/05 PO 0014 Pantoprazole Sodium 40 MG Q5H 02/03 1715 AC 02/05 Sodium Chloride 100 ML IV 0816 Phytonadione 5 MG DAILY 02/03 1705 AC 02/05 PO 0816 Potassium Chloride 10 MEQ Q1H 02/05 0845 DC 02/05 IV 02/05 0946 0959 Potassium Chloride 10 MEQ Q1H 02/04 0930 DC 02/04 IV 02/04 1031 1139 Sodium Chloride 1,000 ML Q13H 02/03 1800 DC 02/05 IV 0803 Impression/Plan Impression/Problem List Impression: Mrs Johnson 2-year-old lady with past medical history of adenomatous colonic polyps, hyperparathyroidism, previously diagnosed left lung and no carcinoma ( never treated with chemotherapy or radiation), previous multiple falls, hyperlipidemia, dementia, diverticulosis, Mnire's disease, essential tremor was brought in by ambulance from [facility] as she was found to be hypotensive. Blood pressure at [facility] was found to be 80/50 mmHg. Upon arrival to emergency department she was afebrile, pulse of 78, respiration of 20, blood pressure was 84/42, she was 96% saturating on room air. He was admitted to ICU for acute blood loss anemia. Problem List along with Assessment and plan : Respiratory 1. Untreated adenocarcinoma of the left lung * Possible metastatic from the gatric carcinoma: Pateint has a biopsy of the lung mass at 2013 which showed adenocarcinoma, non-mucinous. Patient was found to have cecal mass, she underwent immunohistochemical stain evaluation to determine the primary site of the lung and colon. Please refer to the pathology report, patient had EGD done by yesterday and found to have two Gastric Polyps Presumed Malignant (Could be the primary source) which is the source of GI Blood Loss. * Oncology consult place waiting for their input, please follow up their recommendations * PET scan , chemo radiation treatment, however of note patient had denied these treatments previously, never with recent discovery of mass in the GI, this could possibly be a metastatic disease from GI malignancy. 2. New healing fracture involving posteromedial aspect of the left 6th rib * CT chest showed a spiculated mass of 4.1 X and 0.4 cm in the left lung apex which has increased in size, second lobulated oval mass at the left lower lobe of the lung currently measuring 3.5 X 3.4 centimeter, also progressed in size. * Continue to monitor saturations. * Currently saturating 96% on room * ct conservative mx and pain mx for 6th rib healing fracture. Infectious disease * Ceftriaxone was started for possible UTI, however the patient is stable with no white count, no signs of infection therefore discontinue antibiotic. * Continue to follow daily CBC, white count. Cardio * Echo 07/08/2010 EF of 55-60% * Two sets of troponin negative, EKG within normal limits. Metabolic 1. MILAN 2. hypomg 3.hypok * Mild hypomagnesemia, hypokalemia, replete as needed. * Continue to monitor electrolytes. * BUN/CREAT:29/09.1 Hematology 1. Coagulopathy 2. Acute blood loss anemia 2/2 gastric mass: * She is Buddhism * Continue Protonix drip * discussed with the patient's healthcare proxy and eldest daughter. She explained the findings at EGD as well as overall prognosis, discussed that the lesions in the gastric lumen were not removed endoscopically given concerns regarding precipitation of massive bleeding which would be untenable in light of Ms. Knight's refusal to except blood products. Further we discussed that these were likely to continue to bleed episodically and that her hemoglobin was already dangerously low. She explained that given the progression of her lung cancer as well as the possibility that she now has bony metastases that consideration should be given to making Mrs. Knight a DNR/DNI and involving hospice/palliative care. Please refer to the event note written today at 2017. * diet advanced to clear liquid diet. * IV fluid dc * H&H today: 6.4/20.4 * Palliative Care/Hospice Consult. * Vit k X 1 given * ct to monitor coagulation functions. * no blood transfusion as jehovah witness * EGD showed mass in the stomach, possible malignancy. Alimentary/GI * continue to monitor hematocrit and hemoglobin * she is on Protonix IV * Please F/U TIBC, IRON and ferritin if low start IV iron supplement * For now will continue iron supplement orally * She is a jehovah witness and would not want to receive any blood products even if it was an emergency situation and denies any form of blood products. * GI consult appreciated. * EGD with biopsy and control of bleeding performed on 02/04/2018, polypoid lesion/mass was found in the antrum and fundus of the stomach, suspected to be metastatic possible primary gastric malignancy, last EGD in 2011 and colonoscopy in 2013 were negative. * d/c Protonix drip and start IV Protonix. * keep patient nothing by mouth for today, can advance her diet tomorrow 2017 * Ct to follow biopsy report. * The patient does not want to receive chemotherapy, radiation therapy for the cancer, does not want to receive blood products as she is a Buddhism, in this situation and goals of care need to be addressed with suspected metastatic lung disease possible primary from GI. Neuro * Dementia Diet * npo for now, advance tmrw DVT prophylaxis: Alps She is a DNR/DNI Problem List: 1. Lung mass 2. GI bleed 3. Dementia 4. MILAN (acute kidney injury) 5. Tremor Pain Ratin Pain Location: Suprapubic region Tomorrow's Labs & Rationales: ICU lab bundle, CBC Plan DVT/Prophylaxis: mechanical Code Status: Full Code
--- NOTE | 2018-02-05 10:22 | PN- CRCU ---
Subjective HPI/Critical Care Issues: Doing much better Afebrile Blood pressure stabilized Slightly short of breath Vital signs otherwise as reviewed Afebrile with O2 sat of 98% on room air Blood work reviewed Creatinine improved to 1.1 BUN is now low at 19 and anion gap is 11 Her hemoglobin is stable at 6.4 hematocrit 20 she has no significant left shift and platelets are adequate for INR was 1.29. Cultures so far unremarkable EGD note reviewed Patient had polypoid lesion and mass in the antrum and fundus the 2 masses were biopsied. Pathology is awaited Objective Current Medications: Current Medications Sig/Lloyd Start time Last Medication Dose Route Stop Time Status Admin Acetaminophen 650 MG Q6H PRN 02/03 1845 AC 02/04 PO 1834 Atorvastatin Calcium 10 MG DAILY 02/04 09 AC 02/05 PO 0817 Bupropion HCl 300 MG QAM 02/04 0900 AC 02/05 PO 0817 Ceftriaxone Sodium 1,000 MG DAILY@02/03 DC 02/03 IV 203 Donepezil HCl 10 MG 0900 02/04 09 AC 02/05 PO 0817 Duloxetine HCl 60 MG DAILY 02/04 0900 AC 02/05 PO 0817 Ferrous Sulfate 325 MG BID 02/03 2100 AC 02/05 PO 0817 Gabapentin 300 MG QPM 02/03 2100 AC 02/04 PO 2042 Lidocaine 1 PAT DAILY@02/03 1900 AC 02/04 TOP 1801 Lorazepam 1 MG TID 02/03 2100 02/05 PO 0817 Magnesium Sulfate 1 GM ONCE ONE 02/04 09 [place] 02/04 Dextrose/Water 100 ML IV 02/04 1329 0934 Meclizine HCl 12.5 MG BID 02/03 2100 02/05 PO 0816 Morphine Sulfate 1 MG Q6-PRN PRN 02/05 0045 AC 02/05 IV 0516 Oxycodone HCl 5 MG Q6 PRN 02/05 0015 AC 02/05 PO 0014 Pantoprazole Sodium 40 MG Q5H 02/03 1715 AC 02/05 Sodium Chloride 100 ML IV 0816 Phytonadione 5 MG DAILY 02/03 1705 AC 02/05 PO 0816 Potassium Chloride 10 MEQ Q1H 02/05 0845 DC 02/05 IV 02/05 0946 0959 Potassium Chloride 10 MEQ Q1H 02/04 0930 DC 02/04 IV 02/04 1031 1139 Sodium Chloride 1,000 ML Q13H 02/03 1800 DC 02/05 IV 0803 Vital Signs & I&O Last 24 Hrs of Vitals and I&O: Vital Signs Date Time Temp Pulse Resp B/P B/P Pulse O2 O2 Flow FiO2 Mean Ox Delivery Rate 02/05 0800 98.0 82 13 112/57 96 Room Air 02/05 0000 98.4 80 20 99/53 97 Room Air 02/04 1600 98.0 80 29 108/58 97 Room Air Intake & Output 02/05 1600 02/05 0800 02/05 0000 Intake Total 760 760 Output Total 350 430 Balance 410 330 Intake, IV 760 760 Intake, Oral 0 Number 2 2 Bowel Movements Output, Urine 350 430 Laboratory Tests 02/05 02/05 0600 0425 Chemistry Sodium (137 - 145 mmol/L) Cancelled 145 Potassium (3.5 - 5.1 mmol/L) Cancelled 3.8 Chloride (98 - 107 mmol/L) Cancelled 118 H Carbon Dioxide (22 - 30 mmol/L) Cancelled 15 L Anion Gap (5 - 16) Cancelled 11 BUN (7 - 17 mg/dL) Cancelled 19 H Creatinine (0.5 - 1.0 mg/dL) Cancelled 1.1 H Estimated GFR (>60 ml/min) 49 L Glucose (65 - 99 mg/dL) Cancelled 72 Calcium (8.4 - 10.2 mg/dL) Cancelled 8.4 Phosphorus (2.5 - 4.5 mg/dL) Cancelled 3.2 Magnesium (1.6 - 2.3 mg/dL) Cancelled 1.9 Total Bilirubin (0.2 - 1.3 mg/dL) Cancelled 0.3 AST (14 - 36 U/L) Cancelled 15 ALT (9 - 52 U/L) Cancelled 25 Albumin (3.5 - 5.0 g/dL) Cancelled 2.1 L Hematology CBC w Diff Cancelled NO MAN DIFF REQ WBC (4.8 - 10.8 /CUMM) Cancelled 9.9 RBC (4.20 - 5.40 /CUMM) Cancelled 2.70 L Hgb (12.0 - 16.0 G/DL) Cancelled 6.4 *L Hct (37 - 47 %) Cancelled 20.4 L MCV (81.0 - 99.0 FL) Cancelled 75.8 L MCH (27.0 - 31.0 PG) Cancelled 23.8 L MCHC (33.0 - 37.0 G/DL) Cancelled 31.4 L RDW (11.5 - 14.5 %) Cancelled 18.0 H Plt Count (130 - 400 /CUMM) Cancelled 362 MPV (7.4 - 10.4 FL) Cancelled 7.9 Gran % (42.2 - 75.2 %) 74.8 Lymphocytes % (20.5 - 51.1 %) 15.3 L Monocytes % (1.7 - 9.3 %) 7.1 Eosinophils % (0 - 5 %) 2.6 Basophils % (0.0 - 2.0 %) 0.2 Absolute Granulocytes (1.4 - 6.5 /CUMM) 7.4 H Absolute Lymphocytes (1.2 - 3.4 /CUMM) 1.5 Absolute Monocytes (0.10 - 0.60 /CUMM) 0.7 H Absolute Eosinophils (0.0 - 0.7 /CUMM) 0.3 Absolute Basophils (0.0 - 0.2 /CUMM) 0 02/04 02/04 2030 0986 Hematology CBC w Diff NO MAN DIFF REQ NO MAN DIFF REQ WBC (4.8 - 10.8 /CUMM) 9.4 8.2 RBC (4.20 - 5.40 /CUMM) 2.57 L 2.66 L Hgb (12.0 - 16.0 G/DL) 6.1 *L 6.3 *L Hct (37 - 47 %) 19.5 *L 20.2 L MCV (81.0 - 99.0 FL) 75.9 L 75.8 L MCH (27.0 - 31.0 PG) 23.9 L 23.7 L MCHC (33.0 - 37.0 G/DL) 31.5 L 31.2 L RDW (11.5 - 14.5 %) 17.8 H 17.9 H Plt Count (130 - 400 /CUMM) 331 339 MPV (7.4 - 10.4 FL) 7.9 7.7 Gran % (42.2 - 75.2 %) 76.7 H 76.8 H Lymphocytes % (20.5 - 51.1 %) 14.5 L 14.9 L Monocytes % (1.7 - 9.3 %) 7.5 6.6 Eosinophils % (0 - 5 %) 1.0 1.4 Basophils % (0.0 - 2.0 %) 0.3 0.3 Absolute Granulocytes (1.4 - 6.5 /CUMM) 7.2 H 6.3 Absolute Lymphocytes (1.2 - 3.4 /CUMM) 1.4 1.2 Absolute Monocytes (0.10 - 0.60 /CUMM) 0.7 H 0.5 Absolute Eosinophils (0.0 - 0.7 /CUMM) 0.1 0.1 Absolute Basophils (0.0 - 0.2 /CUMM) 0 0 02/04 02/04 0415 0415 Chemistry Sodium (137 - 145 mmol/L) 140 Potassium (3.5 - 5.1 mmol/L) 3.7 Chloride (98 - 107 mmol/L) 112 H Carbon Dioxide (22 - 30 mmol/L) 20 L Anion Gap (5 - 16) 8 BUN (7 - 17 mg/dL) 28 H Creatinine (0.5 - 1.0 mg/dL) 1.4 H Estimated GFR (>60 ml/min) 37 L Glucose (65 - 99 mg/dL) 73 Calcium (8.4 - 10.2 mg/dL) 8.2 L Phosphorus (2.5 - 4.5 mg/dL) 3.3 Magnesium (1.6 - 2.3 mg/dL) 1.8 Total Bilirubin (0.2 - 1.3 mg/dL) 0.2 AST (14 - 36 U/L) 9 L ALT (9 - 52 U/L) 20 Albumin (3.5 - 5.0 g/dL) 1.8 L CA 19-9 Antigen Pending Hematology CBC w Diff NO MAN DIFF REQ WBC (4.8 - 10.8 /CUMM) 9.2 RBC (4.20 - 5.40 /CUMM) 2.49 L Hgb (12.0 - 16.0 G/DL) 6.0 *L Hct (37 - 47 %) 19.0 *L MCV (81.0 - 99.0 FL) 76.0 L MCH (27.0 - 31.0 PG) 24.0 L MCHC (33.0 - 37.0 G/DL) 31.6 L RDW (11.5 - 14.5 %) 17.7 H Plt Count (130 - 400 /CUMM) 314 MPV (7.4 - 10.4 FL) 8.3 Gran % (42.2 - 75.2 %) 72.6 Lymphocytes % (20.5 - 51.1 %) 18.5 L Monocytes % (1.7 - 9.3 %) 6.2 Eosinophils % (0 - 5 %) 2.3 Basophils % (0.0 - 2.0 %) 0.4 Absolute Granulocytes (1.4 - 6.5 /CUMM) 6.7 H Absolute Lymphocytes (1.2 - 3.4 /CUMM) 1.7 Absolute Monocytes (0.10 - 0.60 /CUMM) 0.6 Absolute Eosinophils (0.0 - 0.7 /CUMM) 0.2 Absolute Basophils (0.0 - 0.2 /CUMM) 0 02/03 02/03 194 1504 Chemistry Troponin I (< 0.11 ng/ml) < 0.01 Hematology CBC w Diff NO MAN DIFF REQ WBC (4.8 - 10.8 /CUMM) 12.1 H RBC (4.20 - 5.40 /CUMM) 2.97 L Hgb (12.0 - 16.0 G/DL) 7.0 *L Hct (37 - 47 %) 22.5 L MCV (81.0 - 99.0 FL) 76.0 L MCH (27.0 - 31.0 PG) 23.7 L MCHC (33.0 - 37.0 G/DL) 31.2 L RDW (11.5 - 14.5 %) 17.4 H Plt Count (130 - 400 /CUMM) 378 MPV (7.4 - 10.4 FL) 8.0 Gran % (42.2 - 75.2 %) 75.8 H Lymphocytes % (20.5 - 51.1 %) 14.5 L Monocytes % (1.7 - 9.3 %) 7.6 Eosinophils % (0 - 5 %) 1.9 Basophils % (0.0 - 2.0 %) 0.2 Absolute Granulocytes (1.4 - 6.5 /CUMM) 9.1 H Absolute Lymphocytes (1.2 - 3.4 /CUMM) 1.7 Absolute Monocytes (0.10 - 0.60 /CUMM) 0.9 H Absolute Eosinophils (0.0 - 0.7 /CUMM) 0.2 Absolute Basophils (0.0 - 0.2 /CUMM) 0 Toxicology Urine Opiates Screen (>2000 NG/ML) 1095.00 Methadone Screen (>300 NG/ML) 106 Barbiturate Screen (>200 NG/ML) < 60 Ur Phencyclidine Scrn (>25 NG/ML) 9.80 Amphetamines Screen (>1000 NG/ML) 894 U Benzodiazepines Scrn (>200 NG/ML) < 85 Urine Cocaine Screen (>300 NG/ML) < 50 Urine Cannabis Screen (>50 NG/ML) < 5.00 Urines Urinalysis LIGHT H Urine Color (YEL,AMB,STR) YEL Urine Clarity (CLEAR) HAZY H Urine pH (5.0 - 8.0) 6.0 Ur Specific [place] (1.001 - 1.035) >= 1.030 Urine Protein (NEG,<30 MG/DL) TRACE H Urine Ketones (NEG) NEG Urine Nitrite (NEG) NEG Urine Bilirubin (NEG) NEG Urine Urobilinogen (0.1 - 1.0 EU/dl) 0.2 Ur Leukocyte Esterase (NEG) TRACE H Ur Microscopic SEDIMENT EXAMINED Urine RBC (0 - 5 /HPF) 1-3 Urine WBC (0 - 2 /HPF) 1-3 H Ur Epithelial Cells (NONE,FEW) FEW Hyaline Casts (0/LPF) FEW H Urine Mucus (FEW,NONE) MOD H Urine Hemoglobin (NEG) TRACE-INTACT Urine Glucose (N MG/DL) NEG 02/03 02/03 1351 1253 Chemistry Sodium (137 - 145 mmol/L) 142 Potassium (3.5 - 5.1 mmol/L) 4.2 Chloride (98 - 107 mmol/L) 108 H Carbon Dioxide (22 - 30 mmol/L) 22 Anion Gap (5 - 16) 12 BUN (7 - 17 mg/dL) 38 H Creatinine (0.5 - 1.0 mg/dL) 1.9 H Estimated GFR (>60 ml/min) 26 L BUN/Creatinine Ratio (7 - 25 %) 20.0 Glucose (65 - 99 mg/dL) 110 H Calcium (8.4 - 10.2 mg/dL) 9.0 Total Bilirubin (0.2 - 1.3 mg/dL) 0.3 AST (14 - 36 U/L) 13 L ALT (9 - 52 U/L) 23 Alkaline Phosphatase (<127 U/L) 102 Troponin I (< 0.11 ng/ml) < 0.01 Total Protein (6.3 - 8.2 g/dL) 5.1 L Albumin (3.5 - 5.0 g/dL) 2.4 L Globulin (1.9 - 4.2 gm/dL) 2.7 Albumin/Globulin Ratio (1.1 - 2.2 %) 0.9 L Coagulation PT (9.4 - 12.5 SEC) 14.1 H INR (0.90 - 1.19) 1.29 H Hematology CBC w Diff NO MAN DIFF REQ WBC (4.8 - 10.8 /CUMM) 13.4 H RBC (4.20 - 5.40 /CUMM) 3.21 L Hgb (12.0 - 16.0 G/DL) 7.7 L Hct (37 - 47 %) 24.3 L MCV (81.0 - 99.0 FL) 75.7 L MCH (27.0 - 31.0 PG) 24.0 L MCHC (33.0 - 37.0 G/DL) 31.8 L RDW (11.5 - 14.5 %) 17.7 H Plt Count (130 - 400 /CUMM) 435 H MPV (7.4 - 10.4 FL) 7.8 Gran % (42.2 - 75.2 %) 75.4 H Lymphocytes % (20.5 - 51.1 %) 14.3 L Monocytes % (1.7 - 9.3 %) 8.0 Eosinophils % (0 - 5 %) 1.6 Basophils % (0.0 - 2.0 %) 0.7 Absolute Granulocytes (1.4 - 6.5 /CUMM) 10.1 H Absolute Lymphocytes (1.2 - 3.4 /CUMM) 1.9 Absolute Monocytes (0.10 - 0.60 /CUMM) 1.1 H Absolute Eosinophils (0.0 - 0.7 /CUMM) 0.2 Absolute Basophils (0.0 - 0.2 /CUMM) 0.1 Microbiology Date/Time Procedure - Status Source Growth 02/03 1945 Surveillance Culture - COMP UPPER RESP 05/26 1945 Surveillance Culture - COMP GI 02/03 1504 Urine Culture - COMP URINE ROUT Impression/Plan Impression/Plan Impression/Plan: General Appearance: alert, awake, comfortable Head: atraumatic, normal appearance Eyes: Bilateral: normal appearance. Ears, Nose, Throat: hearing grossly normal, poor dentition Neck: normal inspection, supple Respiratory: normal breath sounds, no respiratory distress, lungs clear Cardiovascular: regular rate/rhythm Gastrointestinal: normal bowel sounds, soft, non-tender, no organomegaly Rectal: per ED, brown stool, hemoccult positive Neurologic/Psych: disoriented x 3 Cranial Nerves: normal hearing, normal speech, cranial nerves II-XII grossly intact Skin: intact, normal color, warm/dry Mrs. Anderson is a 72 yo lady with PMHx. of adenomatous colonic polyps, !? hyperparathyroidism, diagnosed adenocarcinoma of the left lung not on chemotherapy or radiotherapy, falls, hyperlipidemia, dementia, diverticulosis, Meniere's disease, and essential tremor brought in by ambulance from [facility] for low blood pressure. Admitted for acute blood loss anemia and hypotension. Yarsani Assessment: #Acute blood loss anemia due to multiple gastric masses prob malignant adeno ca #Hypotension Resolved #Presyncope resolved #MILAN resolved #UTI no clinical evidence #adenocarcinoma EGFR positive prob the lesions in the stomach is primary and the lung is secondary (EGFR POSITIVIE) not on rx at this time #dementia #Recent fall REC COnt current meds DC ivf for now and pt can have clear or full liquid diet IV ppi Check ferritin, IRon, TIBC and will give Iron infusion if low Cont po iron change to po qod (new rec) Will follow Stable and can be down graded to gen med floor Needs discussion with POA and family about goals of care. ONc ana rosa in am for consideration of po targeted rx consideration if poa wishes it Code Status: Full Code
--- NOTE | 2018-02-05 13:01 | Event Note ---
Event Note Event Note: discussed with alternate health care printing supplies sales representative Mr. Omari Simmons regarding the overall prognosis, decision was made to change the code status to DNR/DNI. I spoke also over the phone with the main health care printing supplies sales representative Mr. Nikhil Cain, who confirm the decision of DNR/DNI, he also mentioned that patient daughters in agreement to change code status to DNR/DNI. Patient's daughter Luba is physically present in the room dauring the above discussion and she is in agreement, she mentioned that her other sister Lyn knows about the decision, hse is in her way to the hospital, Luba confirmed that every one in the same page and in agreement. Patient is going to general medicine floor, please place palliative and hospice consult.
--- NOTE | 2018-02-05 13:43 | PN- Gastroenterology ---
Assessment/Plan GI Assessment/Recommendations: ASSESSMENT: 1. Two Gastric Polyps Presumed Malignant, source of GI Blood Loss 2. Acute blood loss anemia -- H/H stable after injection of epinephrine and cautery of gastric polyps/masses 4. Lung Cancer, Status with increase in size 5. Dementia 6. Jew -- refuses blood transfusion RECOMMENDATIONS: 1. Continue Protonix drip 2. 35 minutes was spent at the bedside with the patient's healthcare proxy and eldest daughter. I discussed the findings at EGD as well as overall prognosis. We discussed that the lesions in the gastric lumen were not removed endoscopically given concerns regarding precipitation of massive bleeding which would be untenable in light of Ms. Knight's refusal to except blood products. Further we discussed that these were likely to continue to bleed episodically and that her hemoglobin was already dangerously low. We discussed given the progression of her lung cancer as well as the possibility that she now has bony metastases that consideration should be given to making Mrs. Knight a DNR/DNI and involving hospice/palliative care. The healthcare proxy will speak to the more seem your healthcare proxy and a decision will be made today. 3. Patient can be transferred to the floor and diet can be advanced. 4. Palliative Care/Hospice Consult Subjective Subjective: Patient is pleasantly demented. Remains comfortable. Her eldest daughter and the secondary healthcare proxy are at the bedside. Objective Vital Signs and I&Os Vital Signs Date Time Temp Pulse Resp B/P B/P Pulse O2 O2 Flow FiO2 Mean Ox Delivery Rate 02/05 0800 98.0 82 13 112/57 96 Room Air 02/05 0000 98.4 80 20 99/53 97 Room Air 02/04 1600 98.0 80 29 108/58 97 Room Air Intake & Output 02/05 1600 02/05 0400 02/04 1600 02/04 0400 02/03 0400 Intake Total 6088 165 0996 360 1000 Output Total 650 430 825 275 Balance 182 518 9405 85 1000 Intake, IV 0767 771 0914 360 1000 Intake, Oral 100 0 Number 2 2 3 Bowel Movements Output, Urine 650 430 825 275 Patient 158 lb 158 lb Weight Weight Bed scale Estimated Measurement Method Physical Exam General Appearance: alert, awake, comfortable Head: normal appearance, ecchymoses at the outer most aspect of the right orbit Respiratory: normal breath sounds, lungs clear Cardiovascular: regular rate/rhythm Abdomen: normal bowel sounds, soft, non-tender Neurologic/Psychiatric: disoriented x 3 Skin: pallor Current Medications: Current Medications Sig/Lloyd Start time Last Medication Dose Route Stop Time Status Admin Acetaminophen 650 MG Q6H PRN 02/03 1845 AC 02/04 PO 1834 Atorvastatin Calcium 10 MG DAILY 02/04 0900 AC 02/05 PO 0817 Bupropion HCl 300 MG QAM 02/04 09 AC 02/05 PO 0817 Ceftriaxone Sodium 1,000 MG DAILY@02/03 DC 02/03 IV 203 Donepezil HCl 10 MG 0902/04 0900 AC 02/05 PO 0817 Duloxetine HCl 60 MG DAILY 02/04 09 AC 02/05 PO 0817 Ferrous Sulfate 325 MG Q48 02/06 09 AC PO Ferrous Sulfate 325 MG BID 02/03 2100 DC 02/05 PO 0817 Gabapentin 300 MG QPM 02/03 2100 AC 02/04 PO 204 Lidocaine 1 PAT DAILY@02/03 190 AC 02/04 TOP 1801 Lorazepam 1 MG TID 02/03 2100 AC 02/05 PO 0817 Meclizine HCl 12.5 MG BID 02/03 2100 AC 02/05 PO 0816 Morphine Sulfate 1 MG Q6-PRN PRN 02/05 0045 AC 02/05 IV 1048 Oxycodone HCl 5 MG Q6 PRN 02/05 0015 02/05 PO 0014 Pantoprazole Sodium 40 MG Q5H 02/03 1715 AC 02/05 Sodium Chloride 100 ML IV 0816 Phytonadione 5 MG DAILY 02/03 1705 AC 02/05 PO 0816 Potassium Chloride 10 MEQ Q1H 02/05 0845 ND 02/05 IV 02/05 0946 0959 Sodium Chloride 1,000 ML Q13H 02/03 1800 DC 02/05 IV 0803 Results Pertinent Lab Results: Laboratory Tests 02/05 02/05 02/05 1100 0600 0425 Chemistry Sodium (137 - 145 mmol/L) Cancelled 145 Potassium (3.5 - 5.1 mmol/L) Cancelled 3.8 Chloride (98 - 107 mmol/L) Cancelled 118 H Carbon Dioxide (22 - 30 mmol/L) Cancelled 15 L Anion Gap (5 - 16) Cancelled 11 BUN (7 - 17 mg/dL) Cancelled 19 H Creatinine (0.5 - 1.0 mg/dL) Cancelled 1.1 H Estimated GFR (>60 ml/min) 49 L Glucose (65 - 99 mg/dL) Cancelled 72 Calcium (8.4 - 10.2 mg/dL) Cancelled 8.4 Phosphorus (2.5 - 4.5 mg/dL) Cancelled 3.2 Magnesium (1.6 - 2.3 mg/dL) Cancelled 1.9 Iron (37 - 170 ug/dL) 17 L TIBC (265 - 497 ug/dL) 172 L Ferritin (11.1 - 264 ng/mL) 133.0 Total Bilirubin (0.2 - 1.3 mg/dL) Cancelled 0.3 AST (14 - 36 U/L) Cancelled 15 ALT (9 - 52 U/L) Cancelled 25 Albumin (3.5 - 5.0 g/dL) Cancelled 2.1 L Hematology CBC w Diff Cancelled NO MAN DIFF REQ WBC (4.8 - 10.8 /CUMM) Cancelled 9.9 RBC (4.20 - 5.40 /CUMM) Cancelled 2.70 L Hgb (12.0 - 16.0 G/DL) Cancelled 6.4 *L Hct (37 - 47 %) Cancelled 20.4 L MCV (81.0 - 99.0 FL) Cancelled 75.8 L MCH (27.0 - 31.0 PG) Cancelled 23.8 L MCHC (33.0 - 37.0 G/DL) Cancelled 31.4 L RDW (11.5 - 14.5 %) Cancelled 18.0 H Plt Count (130 - 400 /CUMM) Cancelled 362 MPV (7.4 - 10.4 FL) Cancelled 7.9 Gran % (42.2 - 75.2 %) 74.8 Lymphocytes % (20.5 - 51.1 %) 15.3 L Monocytes % (1.7 - 9.3 %) 7.1 Eosinophils % (0 - 5 %) 2.6 Basophils % (0.0 - 2.0 %) 0.2 Absolute Granulocytes (1.4 - 6.5 /CUMM) 7.4 H Absolute Lymphocytes (1.2 - 3.4 /CUMM) 1.5 Absolute Monocytes (0.10 - 0.60 /CUMM) 0.7 H Absolute Eosinophils (0.0 - 0.7 /CUMM) 0.3 Absolute Basophils (0.0 - 0.2 /CUMM) 0 02/04 02/04 2030 1410 Hematology CBC w Diff NO MAN DIFF REQ NO MAN DIFF REQ WBC (4.8 - 10.8 /CUMM) 9.4 8.2 RBC (4.20 - 5.40 /CUMM) 2.57 L 2.66 L Hgb (12.0 - 16.0 G/DL) 6.1 *L 6.3 *L Hct (37 - 47 %) 19.5 *L 20.2 L MCV (81.0 - 99.0 FL) 75.9 L 75.8 L MCH (27.0 - 31.0 PG) 23.9 L 23.7 L MCHC (33.0 - 37.0 G/DL) 31.5 L 31.2 L RDW (11.5 - 14.5 %) 17.8 H 17.9 H Plt Count (130 - 400 /CUMM) 331 339 MPV (7.4 - 10.4 FL) 7.9 7.7 Gran % (42.2 - 75.2 %) 76.7 H 76.8 H Lymphocytes % (20.5 - 51.1 %) 14.5 L 14.9 L Monocytes % (1.7 - 9.3 %) 7.5 6.6 Eosinophils % (0 - 5 %) 1.0 1.4 Basophils % (0.0 - 2.0 %) 0.3 0.3 Absolute Granulocytes (1.4 - 6.5 /CUMM) 7.2 H 6.3 Absolute Lymphocytes (1.2 - 3.4 /CUMM) 1.4 1.2 Absolute Monocytes (0.10 - 0.60 /CUMM) 0.7 H 0.5 Absolute Eosinophils (0.0 - 0.7 /CUMM) 0.1 0.1 Absolute Basophils (0.0 - 0.2 /CUMM) 0 0 02/04 02/04 8588 9902 Chemistry Sodium (137 - 145 mmol/L) 140 Potassium (3.5 - 5.1 mmol/L) 3.7 Chloride (98 - 107 mmol/L) 112 H Carbon Dioxide (22 - 30 mmol/L) 20 L Anion Gap (5 - 16) 8 BUN (7 - 17 mg/dL) 28 H Creatinine (0.5 - 1.0 mg/dL) 1.4 H Estimated GFR (>60 ml/min) 37 L Glucose (65 - 99 mg/dL) 73 Calcium (8.4 - 10.2 mg/dL) 8.2 L Phosphorus (2.5 - 4.5 mg/dL) 3.3 Magnesium (1.6 - 2.3 mg/dL) 1.8 Total Bilirubin (0.2 - 1.3 mg/dL) 0.2 AST (14 - 36 U/L) 9 L ALT (9 - 52 U/L) 20 Albumin (3.5 - 5.0 g/dL) 1.8 L CA 19-9 Antigen Pending Hematology CBC w Diff NO MAN DIFF REQ WBC (4.8 - 10.8 /CUMM) 9.2 RBC (4.20 - 5.40 /CUMM) 2.49 L Hgb (12.0 - 16.0 G/DL) 6.0 *L Hct (37 - 47 %) 19.0 *L MCV (81.0 - 99.0 FL) 76.0 L MCH (27.0 - 31.0 PG) 24.0 L MCHC (33.0 - 37.0 G/DL) 31.6 L RDW (11.5 - 14.5 %) 17.7 H Plt Count (130 - 400 /CUMM) 314 MPV (7.4 - 10.4 FL) 8.3 Gran % (42.2 - 75.2 %) 72.6 Lymphocytes % (20.5 - 51.1 %) 18.5 L Monocytes % (1.7 - 9.3 %) 6.2 Eosinophils % (0 - 5 %) 2.3 Basophils % (0.0 - 2.0 %) 0.4 Absolute Granulocytes (1.4 - 6.5 /CUMM) 6.7 H Absolute Lymphocytes (1.2 - 3.4 /CUMM) 1.7 Absolute Monocytes (0.10 - 0.60 /CUMM) 0.6 Absolute Eosinophils (0.0 - 0.7 /CUMM) 0.2 Absolute Basophils (0.0 - 0.2 /CUMM) 0 05/26 05/26 1946 1504 Chemistry Troponin I (< 0.11 ng/ml) < 0.01 Hematology CBC w Diff NO MAN DIFF REQ WBC (4.8 - 10.8 /CUMM) 12.1 H RBC (4.20 - 5.40 /CUMM) 2.97 L Hgb (12.0 - 16.0 G/DL) 7.0 *L Hct (37 - 47 %) 22.5 L MCV (81.0 - 99.0 FL) 76.0 L MCH (27.0 - 31.0 PG) 23.7 L MCHC (33.0 - 37.0 G/DL) 31.2 L RDW (11.5 - 14.5 %) 17.4 H Plt Count (130 - 400 /CUMM) 378 MPV (7.4 - 10.4 FL) 8.0 Gran % (42.2 - 75.2 %) 75.8 H Lymphocytes % (20.5 - 51.1 %) 14.5 L Monocytes % (1.7 - 9.3 %) 7.6 Eosinophils % (0 - 5 %) 1.9 Basophils % (0.0 - 2.0 %) 0.2 Absolute Granulocytes (1.4 - 6.5 /CUMM) 9.1 H Absolute Lymphocytes (1.2 - 3.4 /CUMM) 1.7 Absolute Monocytes (0.10 - 0.60 /CUMM) 0.9 H Absolute Eosinophils (0.0 - 0.7 /CUMM) 0.2 Absolute Basophils (0.0 - 0.2 /CUMM) 0 Toxicology Urine Opiates Screen (>2000 NG/ML) 1095.00 Methadone Screen (>300 NG/ML) 106 Barbiturate Screen (>200 NG/ML) < 60 Ur Phencyclidine Scrn (>25 NG/ML) 9.80 Amphetamines Screen (>1000 NG/ML) 894 U Benzodiazepines Scrn (>200 NG/ML) < 85 Urine Cocaine Screen (>300 NG/ML) < 50 Urine Cannabis Screen (>50 NG/ML) < 5.00 Urines Urinalysis LIGHT H Urine Color (YEL,AMB,STR) YEL Urine Clarity (CLEAR) HAZY H Urine pH (5.0 - 8.0) 6.0 Ur Specific [place] (1.001 - 1.035) >= 1.030 Urine Protein (NEG,<30 MG/DL) TRACE H Urine Ketones (NEG) NEG Urine Nitrite (NEG) NEG Urine Bilirubin (NEG) NEG Urine Urobilinogen (0.1 - 1.0 EU/dl) 0.2 Ur Leukocyte Esterase (NEG) TRACE H Ur Microscopic SEDIMENT EXAMINED Urine RBC (0 - 5 /HPF) 1-3 Urine WBC (0 - 2 /HPF) 1-3 H Ur Epithelial Cells (NONE,FEW) FEW Hyaline Casts (0/LPF) FEW H Urine Mucus (FEW,NONE) MOD H Urine Hemoglobin (NEG) TRACE-INTACT Urine Glucose (N MG/DL) NEG 02/03 02/03 1351 1253 Chemistry Sodium (137 - 145 mmol/L) 142 Potassium (3.5 - 5.1 mmol/L) 4.2 Chloride (98 - 107 mmol/L) 108 H Carbon Dioxide (22 - 30 mmol/L) 22 Anion Gap (5 - 16) 12 BUN (7 - 17 mg/dL) 38 H Creatinine (0.5 - 1.0 mg/dL) 1.9 H Estimated GFR (>60 ml/min) 26 L BUN/Creatinine Ratio (7 - 25 %) 20.0 Glucose (65 - 99 mg/dL) 110 H Calcium (8.4 - 10.2 mg/dL) 9.0 Total Bilirubin (0.2 - 1.3 mg/dL) 0.3 AST (14 - 36 U/L) 13 L ALT (9 - 52 U/L) 23 Alkaline Phosphatase (<127 U/L) 102 Troponin I (< 0.11 ng/ml) < 0.01 Total Protein (6.3 - 8.2 g/dL) 5.1 L Albumin (3.5 - 5.0 g/dL) 2.4 L Globulin (1.9 - 4.2 gm/dL) 2.7 Albumin/Globulin Ratio (1.1 - 2.2 %) 0.9 L Coagulation PT (9.4 - 12.5 SEC) 14.1 H INR (0.90 - 1.19) 1.29 H Hematology CBC w Diff NO MAN DIFF REQ WBC (4.8 - 10.8 /CUMM) 13.4 H RBC (4.20 - 5.40 /CUMM) 3.21 L Hgb (12.0 - 16.0 G/DL) 7.7 L Hct (37 - 47 %) 24.3 L MCV (81.0 - 99.0 FL) 75.7 L MCH (27.0 - 31.0 PG) 24.0 L MCHC (33.0 - 37.0 G/DL) 31.8 L RDW (11.5 - 14.5 %) 17.7 H Plt Count (130 - 400 /CUMM) 435 H MPV (7.4 - 10.4 FL) 7.8 Gran % (42.2 - 75.2 %) 75.4 H Lymphocytes % (20.5 - 51.1 %) 14.3 L Monocytes % (1.7 - 9.3 %) 8.0 Eosinophils % (0 - 5 %) 1.6 Basophils % (0.0 - 2.0 %) 0.7 Absolute Granulocytes (1.4 - 6.5 /CUMM) 10.1 H Absolute Lymphocytes (1.2 - 3.4 /CUMM) 1.9 Absolute Monocytes (0.10 - 0.60 /CUMM) 1.1 H Absolute Eosinophils (0.0 - 0.7 /CUMM) 0.2 Absolute Basophils (0.0 - 0.2 /CUMM) 0.1
--- NOTE | 2018-02-05 13:53 | Transfer of Care Summary ---
Hospital Course Course Hospital Course: Mrs Johnson 2-year-old lady with past medical history of adenomatous colonic polyps, hyperparathyroidism, previously diagnosed left lung and no carcinoma ( never treated with chemotherapy or radiation), previous multiple falls, hyperlipidemia, dementia, diverticulosis, Mnire's disease, essential tremor was brought in by ambulance from [facility] as she was found to be hypotensive. Blood pressure at [facility] was found to be 80/50 mmHg. Upon arrival to emergency department she was afebrile, pulse of 78, respiration of 20, blood pressure was 84/42, she was 96% saturating on room air. He was admitted to ICU for acute blood loss anemia. Problem List along with Assessment and plan : Respiratory 1. Untreated adenocarcinoma of the left lung * Possible metastatic from the gatric carcinoma: Pateint has a biopsy of the lung mass at 2013 which showed adenocarcinoma, non-mucinous. Patient was found to have cecal mass, she underwent immunohistochemical stain evaluation to determine the primary site of the lung and colon. Please refer to the pathology report, patient had EGD done by yesterday and found to have two Gastric Polyps Presumed Malignant (Could be the primary source) which is the source of GI Blood Loss. * Oncology consult place waiting for their input, please follow up their recommendations * PET scan , chemo radiation treatment, however of note patient had denied these treatments previously, never with recent discovery of mass in the GI, this could possibly be a metastatic disease from GI malignancy. 2. New healing fracture involving posteromedial aspect of the left 6th rib * CT chest showed a spiculated mass of 4.1 X and 0.4 cm in the left lung apex which has increased in size, second lobulated oval mass at the left lower lobe of the lung currently measuring 3.5 X 3.4 centimeter, also progressed in size. * Continue to monitor saturations. * Currently saturating 96% on room * ct conservative mx and pain mx for 6th rib healing fracture. Infectious disease * Ceftriaxone was started for possible UTI, however the patient is stable with no white count, no signs of infection therefore discontinue antibiotic. * Continue to follow daily CBC, white count. Cardio * Echo 07/08/2010 EF of 55-60% * Two sets of troponin negative, EKG within normal limits. Metabolic 1. MILAN 2. hypomg 3.hypok * Mild hypomagnesemia, hypokalemia, replete as needed. * Continue to monitor electrolytes. * BUN/CREAT:19/.1 Hematology 1. Coagulopathy 2. Acute blood loss anemia 2/2 gastric mass: * She is [employer]ian * Continue Protonix drip * discussed with the patient's healthcare proxy and eldest daughter. She explained the findings at EGD as well as overall prognosis, discussed that the lesions in the gastric lumen were not removed endoscopically given concerns regarding precipitation of massive bleeding which would be untenable in light of Ms. Knight's refusal to except blood products. Further we discussed that these were likely to continue to bleed episodically and that her hemoglobin was already dangerously low. She explained that given the progression of her lung cancer as well as the possibility that she now has bony metastases that consideration should be given to making Mrs. Knight a DNR/DNI and involving hospice/palliative care. Please refer to the event note written today at 2017. * diet advanced to clear liquid diet. * IV fluid dc * H&H today: .12/29.4 * Palliative Care/Hospice Consult. * Vit k X 1 given * ct to monitor coagulation functions. * no blood transfusion as jehovah witness * EGD showed mass in the stomach, possible malignancy. Alimentary/GI * continue to monitor hematocrit and hemoglobin * she is on Protonix IV * Please F/U TIBC, IRON and ferritin if low start IV iron supplement * For now will continue iron supplement orally * She is a jehovah witness and would not want to receive any blood products even if it was an emergency situation and denies any form of blood products. * GI consult appreciated. * EGD with biopsy and control of bleeding performed on 02/04/2018, polypoid lesion/mass was found in the antrum and fundus of the stomach, suspected to be metastatic possible primary gastric malignancy, last EGD in 2011 and colonoscopy in 2013 were negative. * d/c Protonix drip and start IV Protonix. * keep patient nothing by mouth for today, can advance her diet tomorrow 2017 * Ct to follow biopsy report. * The patient does not want to receive chemotherapy, radiation therapy for the cancer, does not want to receive blood products as she is a [employer]ian, in this situation and goals of care need to be addressed with suspected metastatic lung disease possible primary from GI. Neuro * Dementia Diet * npo for now, advance tmrw DVT prophylaxis: Alps She is a DNR/DNI Complications: Non Significant Procedures: EGD Assessment/Plan: As above Attending MD Review Statement Documenting Attending: Mehul Sosa MD
[2018-02-05 14:07] VITALS: BP 130/70
[2018-02-05 21:31] VITALS: BP 112/68
[2018-02-06 06:20] VITALS: BP 108/70
--- NOTE | 2018-02-06 07:37 | PN- Housestaff ---
Michael Meza 02/06/18 0736: Subjective Follow-up For: -Acute Blood loss anemia -GI mass ? suspected priamry maligancy versus tumor vs metastasis Complaints: no complaints Tele-Events Since Last Visit: none Subjective: Seen and examined the patient today morning, she is pleasant however she is confused and intermittently talks things that does not make any sense. Lyn her power of screedman and daughter is at bedside, her prognosis and situation and possible options discussed in detail with her daughter. Review of Systems Constitutional: Reports: see HPI. Objective Last 24 Hrs of Vital Signs/I&O Vital Signs Date Time Temp Pulse Resp B/P B/P Pulse O2 O2 Flow FiO2 Mean Ox Delivery Rate 02/06 1355 97.2 96 18 140/80 97 Room Air 02/06 0620 98.5 89 18 108/70 91 Nasal Cannula 02/05 2131 97.9 95 16 112/68 96 Room Air Intake & Output 02/06 1600 02/06 0800 02/06 0000 Intake Total 360 520 500 Output Total 150 650 Balance 210 -130 500 Intake, IV 160 Intake, Oral 360 360 500 Number 0 0 Bowel Movements Output, Urine 150 650 Physical Exam General Appearance: Oriented X3, No Acute Distress, confused, pleasant HEENT: Atraumatic, PERRLA, EOMI Cardiovascular: Normal S1, Normal S2, No Murmurs Lungs: Clear to Auscultation, Normal Air Movement Abdomen: Normal Bowel Sounds, Soft, No Tenderness Neurological: Strength at 5/5 X4 Ext, Normal Tone, Sensation Intact Extremities: No Clubbing, No Cyanosis, No Edema Vascular: Normal Pulses Current Medications: Current Medications Sig/Lloyd Start time Last Medication Dose Route Stop Time Status Admin Acetaminophen 650 MG Q6H PRN 02/03 1845 AC 02/04 PO 1834 Atorvastatin Calcium 10 MG DAILY 02/04 09 AC 02/06 PO 0829 Bupropion HCl 300 MG QAM 02/04 09 AC 02/06 PO 0828 Donepezil HCl 10 MG 02/04 09 AC 02/06 PO 0831 Duloxetine HCl 60 MG DAILY 02/04 09 AC 02/06 PO 0831 Ferrous Sulfate 325 MG Q48 02/06 0900 AC 02/06 PO 0831 Gabapentin 300 MG QPM 02/03 2100 AC 02/05 PO 2002 Lidocaine 1 PAT DAILY@1900 02/03 1900 AC 02/05 TOP 1949 Lorazepam 1 MG TID 02/03 2100 AC 02/06 PO 1353 Meclizine HCl 12.5 MG BID 02/03 2100 AC 02/06 PO 0831 Morphine Sulfate 1 MG Q6-PRN PRN 02/05 0045 02/06 IV 1525 Oxycodone HCl 5 MG Q6 PRN 02/05 0015 AC 02/06 PO 1353 Pantoprazole Sodium 40 MG Q5H 02/03 1715 AC 02/06 Sodium Chloride 100 ML IV 1643 Phytonadione 5 MG DAILY 02/03 1705 02/06 PO 0829 Last 24 Hrs of Lab/Herbie Results Last 24 Hrs of Labs/Mics: Laboratory Tests 02/06/18 0615: Anion Gap 8, Estimated GFR > 60, Glucose 84, Calcium 8.3 L, Phosphorus 3.2, Magnesium 1.6, Total Bilirubin 0.2, AST 15, ALT 25, Albumin 1.8 L, CBC w Diff NO MAN DIFF REQ, RBC 2.48 L, MCV 75.2 L, MCH 24.3 L, MCHC 32.3 L, RDW 18.1 H, MPV 7.7, Gran % 71.8, Lymphocytes % 15.3 L, Monocytes % 8.5, Eosinophils % 4.1, Basophils % 0.3, Absolute Granulocytes 5.2, Absolute Lymphocytes 1.1 L, Absolute Monocytes 0.6, Absolute Eosinophils 0.3, Absolute Basophils 0 Lines/Diet/Fluids Restraints: none Assessment/Plan Assessment: Mrs Johnson 2-year-old lady with past medical history of adenomatous colonic polyps, hyperparathyroidism, previously diagnosed left lung and no carcinoma ( never treated with chemotherapy or radiation), previous multiple falls, hyperlipidemia, dementia, diverticulosis, Mnire's disease, essential tremor was brought in by ambulance from [facility] as she was found to be hypotensive. Blood pressure at [facility] was found to be 80/50 mmHg. Upon arrival to emergency department she was afebrile, pulse of 78, respiration of 20, blood pressure was 84/42, she was 96% saturating on room air. He was admitted to ICU for acute blood loss anemia. Problem List along with Assessment and plan : Acute blood loss anemia 2/2 gastric mass: * She is [employer], no blood transfusions, even if life threatening situation. * Continue iv protonix * discussed with the patient's healthcare proxy and eldest daughter. She explained the findings at EGD as well as overall prognosis, discussed that the lesions in the gastric lumen were not removed endoscopically given concerns regarding precipitation of massive bleeding which would be untenable in light of Ms. Knight's refusal to except blood products. Further we discussed that these were likely to continue to bleed episodically and that her hemoglobin was already dangerously low. She explained that given the progression of her lung cancer as well as the possibility that she now has bony metastases that consideration should be given to making Mrs. Knight a DNR/DNI and involving hospice/palliative care. * h/h stable today. 2. Untreated adenocarcinoma of the left lung * Possible metastatic from the gastric carcinoma: Patient has a biopsy of the lung mass at 2013 which showed adenocarcinoma, non-mucinous. Patient was found to have cecal mass, she underwent immunohistochemical stain evaluation to determine the primary site of the lung and colon. Please refer to the pathology report, patient had EGD done by yesterday and found to have two Gastric Polyps Presumed Malignant (Could be the primary source) which is the source of GI Blood Loss. * Oncology consult placed waiting for their input. * PET scan , chemo radiation treatment, however of note patient had denied these treatments previously, never with recent discovery of mass in the GI, this could possibly be a metastatic disease from GI malignancy. 3. New healing fracture involving posteromedial aspect of the left 6th rib * CT chest showed a spiculated mass of 4.1 X and 0.4 cm in the left lung apex which has increased in size, second lobulated oval mass at the left lower lobe of the lung currently measuring 3.5 X 3.4 centimeter, also progressed in size. * Continue to monitor saturations. * Currently saturating 96% on room * ct conservative mx and pain mx for 6th rib healing fracture. 4. UTI * Initially started on treatment, however stable with no sign of infection, ax d /c 5. MILAN * resolved with iv hydration * creatinine at baseline ( 0.9) 6. hypomg/hypok * Mild hypomagnesemia, hypokalemia, replete as needed. * Continue to monitor electrolytes. DVT prophylaxis: Alps She is a DNR/DNI advanced to clear liquids. Problem List: 1. Lung mass 2. MILAN (acute kidney injury) 3. GI bleed 4. Suspected malignant neoplasm 5. Dementia 6. Tremor Pain Ratin Pain Location: abdomen Pain Goal: Remain pain free Pain Plan: current mx Tomorrow's Labs & Rationales: cbc for h/h Discharge Plan Discharge Disposition: STR/NH Stable for Discharge? No Anticipated Discharge (Day): tomorrow If Discharged Today/In 24 Hrs: CMR done Kraig Quintana 02/06/18 1547: Attending MD Review Statement Attending Statement Attending MD Statement: examined this patient, discuss w/resident/PA/DEVELOPER ANALYST, agreed w/resident/PA/DEVELOPER ANALYST, reviewed EMR data (avail), discussed with nursing, discussed with case mgmt Attending Assessment/Plan: pt seen and examined at bedside. will d/w family the care plan and will f/u on heme/onc consult given her anemia and EGD findings of 2 polypoid masses concerning for malignancy in stomach area. awaiting path results. Anemia- hb of 6.0. will d/w hematology about iron infusions and erythropoetin. Pt is [employer]ev[employer]'s witness and would not want transfusions.
[2018-02-06 08:14] LABS: ABSOLUTE BASOPHIL COUNT 0 /CUMM (0.0-0.2); ABSOLUTE EOSINOPHIL COUNT 0.3 /CUMM (0.0-0.7); ABSOLUTE GRANULOCYTE CT 5.2 /CUMM (1.4-6.5); ABSOLUTE LYMPH COUNT 1.1 /CUMM (1.2-3.4); ABSOLUTE MONOCYTE COUNT 0.6 /CUMM (0.10-0.60); BASOPHIL % 0.3 % (0.0-2.0); EOSINOPHIL % 4.1 % (0-5); GRANULOCYTE % 71.8 % (42.2-75.2); MEAN CORPUSCULAR HGB 24.3 PG (27.0-31.0); MEAN CORPUSCULAR HGB CONC 32.3 G/DL (33.0-37.0); MEAN CORPUSCULAR VOLUME 75.2 FL (81.0-99.0); MEAN PLATELET VOLUME 7.7 FL (7.4-10.4); PLATELET COUNT 341 /CUMM (130-400); RBC DISTRIBUTION WIDTH 18.1 % (11.5-14.5); RED BLOOD CELL CT 2.48 /CUMM (4.20-5.40); WHITE BLOOD CELL COUNT 7.3 /CUMM (4.8-10.8)
[2018-02-06 08:54] LABS: HEMATOCRIT 18.6 % (37-47)
[2018-02-06 13:55] VITALS: BP 140/80
[2018-02-06 22:29] VITALS: BP 130/70
[2018-02-07 06:20] VITALS: BP 128/72
--- NOTE | 2018-02-07 07:08 | Discharge Summary ---
Visit Information Visit Dates Admission Date: 02/03/18 Discharge Date: 02/08/2018 Hospital Course Course Attending Physician: Dr. Piotr Quintana Primary Care Physician: Clara Mccarthy MD Hospital Course: Ms Anderson is a 72-year-old female with past medical history of adenomatous colonic polyps, hyperparathyroidism, previously diagnosed lung cancer ( adenocarcinoma), never treated with chemotherapy or radiation, previous multiple falls, hyperlipidemia, dementia, diverticulosis, Mnire's disease, essential tremor was brought in by ambulance from [facility] after she was found to have low blood pressure of 80/50 mmHg. Vitals on arrival were afebrile temperature, pulse of 78, respiration of 20, blood pressure was 84/42, she was 96% saturating on room air. CT abdomen pelvis and chest showed left upper lobar lung neoplasm and a second primary versus intrapulmonary metastatic disease within the left lower lobe of the lung showing interval progression, there was a new healing fracture involving the posterior medial aspect of the left sixth rib. CT head and cervical spine did not show any acute intracranial pathology, any acute fracture or traumatic subluxation. She was initially admitted to critical care unit then downgraded to general medicine floor for the treatment of following problems Problem #1 acute blood loss anemia : It was found that her hemoglobin had significantly dropped from before, her H&H was found to be 6.4/20.4, however as she is Protestant she continued to refuse any kind of blood products, even if it meant to be life threatening. * We guaiac her stools which was found to be positive. GI was consulted and endoscopy/colonoscopy was planned. The endoscopy procedure done on 02/04/2018 showed polypoid lesion/antral mass and fundal mass that appeared malignant, biopsies were taken, CEA and CA-19-9 were checked which are still pending. * It was also noted that she does have a family history of pancreatic cancer and the current findings were absent in previous EGD in 2011 and colonoscopy in 2013. The anemia was thought to be secondary to bleeding from the malignant appearing mass, occult epinephrine was administered to control the bleeding after a biopsy of the mass was taken. * Her blood loss was treated with IV normal saline however no blood products were given, she was continued on IV Protonix later switched to by mouth omeprazole. * After the EGD, her diet was gradually advanced as she tolerated it. #2 previous history of adenocarcinoma of the lung : * Ms. Freeman was found to have a lung mass in 2013 which was proven to be adenocarcinoma, nonmucinous, however no chemotherapy or radiation therapy was pursued at that instance. * This time around the patient had EGD and was found to have two gastric masses, which on preliminary pathology result appeared to be malignant, final pathology report still awaited was found. With the background of her not receiving any blood products with hemoglobin on the day of discharge at 5.9, with suspected primary being GI and metastasis to lung, possible bony metastasis with posterior medial aspect of the left sixth rib showing healing fracture, the prognosis seems to be poor as well as she would not be a candidate for chemotherapy or radiation and we will be pursuing towards discussing goals of care, discharging her to [facility] and pursuing hospice care. #3 Healing fracture involving posterior medial aspect of the left sixth rib CT chest showed a new healing fracture in the left sixth rib, which could have been a stress fracture from possible metastasis from her primary malignancy. In the setting of not receiving any blood products, plus a poorly differentiated malignancy with metastasis and poor prognosis, we will be pursuing hospice care once she is discharged to [facility]. #4 urinary tract infection. It was thought initially that the patient might have a urinary tract infection, however there were no signs of infection, white count normalized, no other signs of sepsis were noted therefore initiate antibiotic treatment with iv ceftriaxone for urinary tract infection was discontinued and a complete course was not pursued as it was not deemed that she actually had a UTI. #5 acute kidney injury. Patient had mildly elevated creatinine, her baseline creatinine is 0.9, acute kidney injury resolved with IV hydration. #6 hypomagnesemia/hypokalemia The electrolytes especially magnesium and potassium were monitored closely, and repleted as needed, prior to discharge these electrolytes were within normal limits. #7 goals of care discussion. With the light that she will never be receiving any blood products with a hemoglobin of 5.9, previous untreated adenocarcinoma of the lung, possible metastasis to bone with a sixth left rib healing fracture, and now newly discovered GI mass, where in the preliminary pathology reports show poorly differentiated malignancy, goals of care discussion was done on the 02/09/2018 with her daughter Lyn, her other daughter and aunt at bedside along with the entire team and decision was made not to pursue aggressive treatment, she will be discharged to [facility] as a DNR/DNI and will pursue hospice care at [facility]. She was DNR/DNI during hospital stay, eventual transitioned to hospice. She is on regular diet. DVT prophylaxis was given mechanical due to acute blood loss anemia. Allergies: Coded Allergies: divalproex sodium (From DEPAKOTE) (UNKNOWN PER W-10 02/03/18) doxycycline (UNKNOWN 05/18/17) Uncoded Allergies: MOLD (UNKNOWN 06/11/12) Significant Procedures: Endoscopy Procedure Medical History: unchanged Mental Status: alert/oriented Heart/Lung Eval Prior to Sedation: within normal limits Candidate for Sedation? Yes Procedure Date: 02/04/18 Procedure Type: EGD with biopsy and control of bleeding Inspector Raw Quartz: MD Garcia Deborah E. ASA Classification: III Indications: 1. Blood loss anemia 2. Hemoccult-positive stool 3. Question epigastric pain Instrument: diagnostic gastroscope Meds Received: MAC Patient's Tolerance: good Complications: none Extent Reached: second part of duodenum Procedure: Note: Informed consent was obtained prior to procedure. Risks and benefits of procedure were discussed with patient's health care proxy, Nikhil Alvares. Potential complications discussed included perforation, bleeding, abdominal pain , and adverse reaction to medications. It was explained that iany or all of these complications could result in the need for extended hospitalization, emergency surgery, transfusion of packed red blood cells (with the risk of HIV or hepatitis virus), intubation with mechanical ventilation, and possible need for antibiotics. It was further explained that an existing tumor polyp or mucosal abnormality might not be identified at the time of the procedure thus resulting in a missed opportunity for early diagnosis and treatment of a gastrointestinal malignancy or disease with possible interval development of a gastrointestinal cancer or other disease with possible worsening of clinical condition in the interval between endoscopies. It was also discussed that complications are not limited to those listed above. Possible alternatives to endoscopic treatment or evaluation were discussed. All questions were answered. Patient is a Protestant and refuses to accept blood transfusions. Continuous EKG and blood pressure monitors were attached. Supplemental oxygen was provided with O2 Sat monitoring. Patient was placed in the left lateral decubitus position. A surgical timeout was performed. All persons in the room were identified. All concerns were expressed and answered. A bite block was placed in the mouth and sedation was administered by anesthesia and titrated to comfort prior to starting the procedure. The Olympus upper endoscope was advanced under direct vision to the level of the third portion of the duodenum. Esophagus: The esophagus had a normal mucosal vascular pattern throughout its entirety. The GE junction was identified and was normal. The Z line was located at 5 cm from the incisors and was nondisplaced. Stomach: The stomach had a nodular pattern throughout the gastric body. Retroflexed view of the cardiofundic region revealed a normal mucosal and vascular pattern with the exception of a large hemorrhagic polypoid lesion on a stalk. It was biopsied but felt hard to the touch of the biopsy forceps. It had stigmata of bleeding with hemorrhagic spots and blood oozing from the base which appeared somewhat ulcerated. 2 mL of 1-10,000 epinephrine were injected into the base. There were normal rugae and normal distensibility. Within the antrum there was a second polypoid lesion on a broad stalk with an ulcerated and oozing mushroom-like. Multiple biopsies were obtained from this. 4 mL of epinephrine were injected around the base of this lesion. It was also treated with electrocautery for control of bleeding. The pylorus was patent and easily intubated. Biopsies were obtained from the antrum, angularis, gastric body and lesser curvature to rule out H. Pylori. Duodenum: The duodenum was fully examined from bulb down to the third portion. There was a normal mucosal vascular pattern throughout. With the endoscope in the forward-viewing position, it was slowly withdrawn and all areas were re-inspected and findings are as described previously. Patient tolerated the procedure well. EBL: 2ml Specimens Removed: 1. Polypoid lesion/mass antrum 2. Polypoid lesion/mass fundus Findings: 1. Polypoid lesion/mass antrum 2. Polypoid lesion/mass fundus Impression: There are 2 polypoid masses within the gastric lumen. These appear malignant. I presume these are metastatic lesions however they may represent a primary gastric malignancies. Patient last had EGD in 2011. Had negative colonoscopy in 2013. She also has a family history of pancreatic cancer and has known IPMN of side duct branches which has been followed in the past at [facility]. Pertinent Lab Results: SERVICE DATE: 02/03/18 EXAM TYPE: CAT - CT ABD & PELVIS W/O IV CONTRAS; CT CHEST WO IV CONTRAST EXAMINATION: CT CHEST, ABDOMEN AND PELVIS WITHOUT CONTRAST CLINICAL INFORMATION: Dementia. Status post fall. Trauma to the head. COMPARISON: CT of the chest done on 02/15/[address] of the abdomen and pelvis done on 03/25/2013. TECHNIQUE: Multidetector volumetric imaging was performed from the thoracic inlet through the pubic symphysis without administration of any contrast. DLP: 696.8 mGy-cm. FINDINGS: VISUALIZED NECK: Unremarkable. LUNGS: There is a spiculated 4.1 x 1.4 cm mass identified at left lung apex, previously measured 3.1 x 1.7 cm on the study dated 02/15/2017, consistent with interval progression of presumed clinically known left upper lobar lung neoplasm. The second lobulated oval-shaped mass seen at left lower lobe of the lung currently measures 3.5 x 3.4 cm, previously measured 3.1 x 2.1 cm, also consistent with interval progression of presumed metastatic or second primary lung neoplasm. There is a tiny 3 to 4 mm solid-appearing nodule identified adjacent to this dominant mass, unchanged. The tracheobronchial tree appeared patent. Hypoventilatory changes are noted at both lung bases. MEDIASTINUM: Atherosclerotic disease including coronary arterial calcifications are noted, similar to prior study. There are no pathologically enlarged mediastinal and/or hilar lymphadenopathy present. Lobulated anterior mediastinal soft tissue density likely represents a vessel, unchanged. PLEURA: There is no pleural effusion. No pleural mass or thickening. AXILLA: No lymphadenopathy LIVER, GALLBLADDER, BILIARY TREE: Unremarkable on this nonenhanced study. PANCREAS: Unremarkable on this nonenhanced study. SPLEEN: Unremarkable. ADRENAL GLANDS AND KIDNEYS: Multiple cortical renal cysts are noted. The left kidney appears electively atrophied, unchanged. URETERS AND BLADDER: Unremarkable. BOWEL LOOPS: Decompressed. Colonic diverticulosis is present. LYMPHOVASCULAR STRUCTURES: No pathologically enlarged retroperitoneal, mesenteric, pelvic, inguinal and/or groin lymphadenopathy present, unchanged. PELVIS: There is no pelvic mass present. There is no free fluid and/or free air present. Specifically, no evidence of any hematoma present. BONES: Interval development of a healing fracture identified involving the posterior medial aspect of the left 6th rib, new since 02/15/2017. Differential includes posttraumatic versus metastatic pathological fracture. IMPRESSION: 1. Technically limited study due to lack of intravenous contrast. 2. Previously documented, clinically known presumed primary left upper lobar lung neoplasm and a second primary versus intrapulmonary metastatic disease within the left lower lobe of the lung shows interval progression since most recent prior study dated 02/15/2017. 3. No CT evidence of any superimposed acute intrathoracic or intra-abdominal or intrapelvic pathology is present. 4. Note is, however, made of a new healing fracture involving posteromedial aspect of the left 6th rib, may represent posttraumatic versus pathological fracture. SERVICE DATE: 02/03/18 EXAM TYPE: CAT - CT CERV SPINE WO IV CONTRAST; CT HEAD WO IV CONTRAST EXAMINATION: CT HEAD AND CERVICAL SPINE WITHOUT CONTRAST CLINICAL INFORMATION: History of fall. Dementia. Trauma to the head. COMPARISON: CT of the head done on 02/13/[address] of the cervical spine done on 03/25/2013. TECHNIQUE: Noncontrast CT scan of the head and cervical spine, using standard protocol. Multiplanar reconstructed images are obtained. Multiplanar reconstructed images are also obtained. DLP: 614.25 mGy-cm. FINDINGS: CT OF THE HEAD: Age-appropriate mild diffuse cortical atrophy and mild chronic microvascular deep white matter ischemic changes are present. Specifically, no evidence of intra-axial mass, mass effect, extra-axial fluid collection, midline shift, acute intraparenchymal hemorrhage and/or acute infarction present. Both orbital globes, extraocular muscles, optic nerves appear bilaterally symmetric and are unremarkable. The bilateral mastoid air cells appear unremarkable. CT OF THE CERVICAL SPINE: Grade 1 anterolisthesis of C5 over C6 is noted. Unchanged since prior study dated 03/25/2013. [id number] mid cervical dextroscoliosis is noted. Multilevel degenerative spondylosis-related changes are noted throughout the entire cervical spine. Significant facet joint arthritic changes are noted bilaterally throughout the entire cervical spine. There is no evidence of any fracture or traumatic subluxation present. There is no prespinal soft tissue hematoma seen. The visualized lung apices are remarkable for presence of a nonspecific irregular ill-defined spiculated opacity seen at left lung apex, not optimally characterized. Followup chest radiograph may be considered for further clarification, if clinically appropriate. IMPRESSION: 1. No acute intracranial pathology. 2. No CT evidence of any acute fracture or traumatic subluxation or prespinal soft tissue hematoma present at the cervical spine. 3. Abnormal left lung apex. Followup chest radiograph may be considered for further full detailed evaluation, if clinically appropriate. Disposition Summary Disposition Principal Diagnosis: #1 Acute Blood Loss Anemia # previous adenocarcinome of lung # New gi Mass, suspected primary maligancy ( final reports pending) # hypomagnesemia # hypokalemia # MILAN Additional Diagnosis: # Peripehral nueropathy # Hyperlipidemia Discharge Disposition: SNF Discharge Instructions General Discharge Information Code Status: Do Not Resucitate/Intubat Patient's Diet: Regular Patient's Activity: As tolerated Follow-Up Instructions/Appts: Please contniue to follow up with your PCP within one week of discharge. Please follow up with the final pathology report which is still pending of the biopsy of GI mass. Medications at Discharge Discharge Medications: Continue taking these medications: Bupropion HCl (Bupropion XL) 300 MG TAB.ER.24H 1 Tablet ORAL Every Morning Comments: Last Taken: 02/08/18 Time: 914 Meclizine HCl (Meclizine HCl) 12.5 MG TABLET 1 Tablet ORAL TWICE DAILY Comments: Last Taken: 02/08/18 Time: 914 Propranolol HCl (Propranolol HCl) 10 MG TABLET 1 Tablet ORAL THREE TIMES DAILY Comments: DID NOT ADMINISTER IN HOSPITAL LORazepam (Ativan) 1 MG TABLET 1 Tablet ORAL THREE TIMES DAILY Comments: Last Taken: 02/08/18 Time: 1329 Donepezil HCl (Aricept) 10 MG TABLET 1 Tablet ORAL 0900 Comments: Last Taken: 02/08/18 Time: 914 Lidocaine (Lidoderm) 5 % ADH..PATCH 1 Patch On the skin DAILY Instructions: may wear up to 12 hours Comments: Last Taken: 02/07/18 Time: 1950 Oxycodone HCl (Oxycodone HCl) 10 MG TABLET 1 Tablet ORAL EVERY 8 HOURS Qty = 30 Comments: 5MG ADMINISTERED Last Taken: 02/08/18 Time: 914 Gabapentin (Gabapentin) 300 MG CAPSULE 1 Capsule ORAL Every night Qty = 30 Comments: Last Taken: 02/07/18 Time: 1950 Trazodone HCl (Trazodone HCl) 100 MG TABLET 1 Tablet ORAL Every night Qty = 30 Comments: DID NOT ADMINISTER IN HOSPITAL Duloxetine HCl (Duloxetine HCl) 60 MG CAPSULE.DR 1 Capsule ORAL DAILY Qty = 30 Comments: Last Taken: 02/08/18 Time: 914 Fluticasone Propionate (Flonase Allergy Relief) 50 MCG/ACTUATION SPRAY.SUSP 2 [place] Both sides of nose DAILY Comments: DID NOT ADMINISTER IN HOSPITAL Omeprazole (Omeprazole) 40 MG CAPSULE.DR 1 Capsule ORAL DAILY Qty = 30 Comments: IV PROTONIX GTT ADMINISTERED Ropinirole HCl (Requip) 2 MG TABLET 1 Tablet ORAL Every night Qty = 30 Comments: DID NOT ADMINISTER IN HOSPITAL Atorvastatin Calcium (Lipitor) 10 MG TABLET 1 Tablet ORAL DAILY Comments: Last Taken: 02/08/18 Time: 0915 Benzocaine (Anbesol) (Unknown Strength) LIQUID Unknown Dose ORAL 4XDAILY as needed for GUMS Comments: DID NOT ADMINISTER IN HOSPITAL Mag Carb/Al Hydrox/Alginic AC (Gaviscon Extra Strength Liquid) (Unknown Strength ) ORAL.SUSP Unknown Dose ORAL Q6H as needed for INDIGESTION Comments: DID NOT ADMINISTER Bisacodyl (Dulcolax) 10 MG SUPP.RECT 1 Suppository RECTAL DAILY as needed for CONSTIPATION Comments: DID NOT ADMINISTER IN HOSPITAL Na Phos,M-B/Na Phos,Di-Ba (Fleet Enema) 19 GRAM-7 GRAM/118 ML ENEMA 1 Enema RECTAL DAILY as needed for CONSTIPATION Comments: DID NOT ADMINISTER IN HOSPITAL Hyoscyamine Sulfate (Levsin-Sl) 0.125 MG TAB.SUBL 1 Tablet SUBLINGUAL THREE TIMES DAILY Comments: DID NOT ADMINISTER IN HOSPITAL Albuterol Sulfate (Albuterol Sulfate) 2.5 MG/3 ML (0.083 %) VIAL.NEB 1 Vial Inhale Solution Q6H as needed for WHEEZING Comments: DID NOT RECIEVE IN HOSPITAL Sodium Chloride (Nasal Moisturizing) 0.65 % SPRAY 1 [place] Both sides of nose THREE TIMES DAILY as needed for NASAL DRYNESS Comments: DID NOT ADMINISTER IN HOSPITAL Dextran 70/Hypromellose (Artificial Tears) (Unknown Strength) DROPERETTE Unknown Dose Both Eyes THREE TIMES DAILY Comments: DID NOT ADMINISTER IN HOSPITAL Lisinopril (Lisinopril) 5 MG TABLET 1 Tablet ORAL DAILY Comments: DID NOT ADMINISTER IN HOSPITAL Polyethylene Glycol 3350 (Miralax) 17 GRAM POWD.PACK 1 Packet ORAL DAILY Instructions: dissolve in water Comments: DID NOT ADMINISTER IN HOSPITAL Sennosides (Senna) 8.6 MG TABLET 1 Tablet ORAL DAILY Comments: DID NOT ADMINISTER IN HOSPITAL Ergocalciferol (Vitamin D2) (Vitamin D2) 50,000 UNIT CAPSULE 1 Capsule ORAL ONCE A MONTH Comments: DID NOT ADMINISTER IN HOSPITAL Acetaminophen (Acephen) 650 MG SUPP.RECT 1 SUPPOSITORY RECTALLY Q6H as needed for PAIN/TEMP>101 Comments: DID NOT RECIEVE IN HOSPITAL Acetaminophen (Acetaminophen) 325 MG TABLET 2 Tablet ORAL Q6H as needed for PAIN/TEMP>101 Comments: Last Taken: 02/04/18 Time: 183 Acetaminophen (Pain Reliever) 325 MG TABLET 2 Tablet ORAL DAILY Comments: Last Taken: 02/04/18 Time: 1830 Naloxone HCl (Narcan) 4 MG/ACTUATION SPRAY 1 [place] In the nose As Directed as needed for OPIOID INDUCED RESP. DEPRESSIO Start taking the following new medications: Ferrous Sulfate (Ferrous Sulfate) 325 MG (65 MG IRON) TABLET.DR 1 Tablet ORAL EVERY 48 HOURS (Every 2 days) Qty = 90 No Refills Comments: Last Taken: 02/08/18 Time: 0915 Copies To: Radha CUEVA,Nani Mccarthy MD,Clara Tolentino; Sweta CUEVA,Carlitos Fulton Attending MD Review Statement Documenting Attending: Lilian CUEVA,Kraig Galeano Other Findings: Pt being dced to [facility] with hospice care. agree with the above dc summary. d/w pt and pts family at bedside the care plan.
--- NOTE | 2018-02-07 07:13 | PN- Housestaff ---
Michael Meza 02/07/18 0713: Subjective Follow-up For: -Acute Blood loss anemia -GI mass ? suspected priamry maligancy versus tumor vs metastasis Complaints: no complaints Subjective: Seen and examined the patient today morning, she appears to be pleasantly confused, we plan to have a family meeting tomorrow to discuss prognosis and further goals of care. Her daughter Lyn along with one of her aunts will be coming in at 10 AM for further discussion of goals of care. The patient was oriented to place however not oriented to time and person, continued to point at her abdomen, complained of pain, however was not able to add any more details, she continues to tolerate her full liquid diet fine, will advance as tolerated. Review of Systems Constitutional: Reports: see HPI. Objective Last 24 Hrs of Vital Signs/I&O Vital Signs Date Time Temp Pulse Resp B/P B/P Pulse O2 O2 Flow FiO2 Mean Ox Delivery Rate 02/07 0620 98.4 95 20 128/72 95 Room Air 02/06 2229 98.1 95 19 130/70 97 Room Air 02/06 1355 97.2 96 18 140/80 97 Room Air Intake & Output 02/07 0800 02/07 0000 02/06 1600 Intake Total 520 1400 360 Output Total 600 150 Balance 520 800 210 Intake, IV 160 800 Intake, Oral 360 600 360 Number 0 Bowel Movements Output, Urine 600 150 Physical Exam General Appearance: Oriented X3, Cooperative Skin: No Rashes, No Breakdown Cardiovascular: Normal S1, Normal S2, No Murmurs Lungs: Clear to Auscultation, Normal Air Movement Abdomen: Normal Bowel Sounds, Soft, No Tenderness Neurological: Strength at 5/5 X4 Ext, Normal Tone, Sensation Intact, Cranial Nerves 3-12 NL Extremities: No Clubbing, No Cyanosis, Normal Pulses Vascular: Normal Pulses Current Medications: Current Medications Sig/Lloyd Start time Last Medication Dose Route Stop Time Status Admin Acetaminophen 650 MG Q6H PRN 02/03 184 AC 02/04 PO 183 Atorvastatin Calcium 10 MG DAILY 02/04 09 AC 02/06 PO 08 Bupropion HCl 300 MG QAM 02/04 900 AC 02/06 PO 0828 Donepezil HCl 10 MG 02/04 09 AC 02/06 PO 0831 Duloxetine HCl 60 MG DAILY 02/04 900 AC 02/06 PO 0831 Ferrous Sulfate 325 MG Q48 02/06 0900 AC 02/06 PO 0831 Gabapentin 300 MG QPM 02/03 2100 AC 02/06 PO 194 Lidocaine 1 PAT DAILY@1900 02/03 1900 AC 02/06 TOP 194 Lorazepam 1 MG TID 02/03 2100 AC 02/06 PO 1948 Meclizine HCl 12.5 MG BID 02/03 2100 AC 02/06 PO 194 Morphine Sulfate 1 MG Q6-PRN PRN 02/05 0045 AC 02/07 IV 0554 Oxycodone HCl 5 MG Q6 PRN 02/05 0015 AC 02/06 PO 191 Pantoprazole Sodium 40 MG Q5H 02/03 171 AC 02/07 Sodium Chloride 100 ML IV 0211 Patient Medication 1 ED ONE ONE 02/06 1830 [facility] 02/06 Teaching ED 02/06 Phytonadione 5 MG DAILY 02/03 1705 AC 02/06 PO 08 Last 24 Hrs of Lab/Herbie Results Last 24 Hrs of Labs/Mics: Laboratory Tests 02/07/18 0735: CBC w Diff NO MAN DIFF REQ, RBC 2.42 L, MCV 75.7 L, MCH 24.2 L, MCHC 32.0 L, RDW 17.7 H, MPV 7.7, Gran % 71.0, Lymphocytes % 15.4 L, Monocytes % 9.5 H, Eosinophils % 3.6, Basophils % 0.5, Absolute Granulocytes 5.1, Absolute Lymphocytes 1.1 L, Absolute Monocytes 0.7 H, Absolute Eosinophils 0.3, Absolute Basophils 0 Lines/Diet/Fluids Restraints: none Assessment/Plan Assessment: Mrs Johnson 72-year-old lady with past medical history of adenomatous colonic polyps, hyperparathyroidism, previously diagnosed left lung and no carcinoma ( never treated with chemotherapy or radiation), previous multiple falls, hyperlipidemia, dementia, diverticulosis, Mnire's disease, essential tremor was brought in by ambulance from [facility] as she was found to be hypotensive. Blood pressure at [facility] was found to be 80/50 mmHg. Upon arrival to emergency department she was afebrile, pulse of 78, respiration of 20, blood pressure was 84/42, she was 96% saturating on room air. Gradually she was admitted to ICU, downgraded to general medicine floor once stable. Problem List along with Assessment and plan : Acute blood loss anemia 2/2 gastric mass: * She is Rastafari, no blood transfusions, even if life threatening situation. * Continue iv protonix * discussed with the patient's healthcare proxy and eldest daughter. She explained the findings at EGD as well as overall prognosis, discussed that the lesions in the gastric lumen were not removed endoscopically given concerns regarding precipitation of massive bleeding which would be untenable in light of Ms. Knight's refusal to accept blood products. * Further we discussed that these were likely to continue to bleed episodically and that her hemoglobin was already dangerously low. * She explained that given the progression of her lung cancer as well as the possibility that she now has bony metastases that consideration should be given to making Mrs. Knight a DNR/DNI and involving hospice/palliative care. * Case discussed with heme oncology, there is no other option to blood transfusion, prognosis poor, will hold a family meeting tomorrow at 10am to discuss goals of care or if there are any options for further treatment at all that is acceptable to the patient 2. Untreated adenocarcinoma of the left lung, Now new Gastric mass suspected malignancy ( priamry versus metastasis) * Possible metastatic from the suspected gastric carcinoma: This time around during EGD she was found to have antral masses which were bleeding, a biopsy was taken and the preliminary report of the biopsy was discussed with the laboratory and it was found to be a poorly differentiated malignancy, further identification of the actual type of carcinoma awaiting (Of note,Patient does have a biopsy of the lung mass in 2013 which showed adenocarcinoma, non-mucinous, that was not treated.Patient was also found to have cecal mass, she underwent immunohistochemical stain evaluation to determine the primary site of the lung and colon.) * we will continue to follow the results however in this situation perhaps if she does not agree with the blood transfusion, tolerating chemotherapy/radiation if at all indicated does not look a possibility, and heading in that direction of goals of care discussion. 3. New healing fracture involving posteromedial aspect of the left 6th rib * CT chest showed a spiculated mass of 4.1 X and 0.4 cm in the left lung apex which has increased in size, second lobulated oval mass at the left lower lobe of the lung currently measuring 3.5 X 3.4 centimeter, also progressed in size ? bony metastasis * ct conservative mx and pain mx for 6th rib healing fracture. 4. UTI * Initially started on treatment, however stable with no sign of infection, ax d /c 5. MILAN * resolved with iv hydration * creatinine at baseline ( 0.9) 6. hypomg/hypok * potassium normalised, mg supplemented today. DVT prophylaxis: Alps She is a DNR/DNI advanced to clear liquids. Problem List: 1. Suspected malignant neoplasm 2. Lung mass 3. MILAN (acute kidney injury) 4. GI bleed 5. Dementia 6. Tremor Pain Ratin Pain Location: none Pain Goal: Remain pain free Pain Plan: current plan Tomorrow's Labs & Rationales: lytes Discharge Plan Discharge Disposition: STR/NH Stable for Discharge? No Anticipated Discharge (Day): today If Discharged Today/In 24 Hrs: CMR done Kraig Quintana 02/07/18 1329: Attending MD Review Statement Attending Statement Attending MD Statement: examined this patient, discuss w/resident/PA/STONE DRESSER, agreed w/resident/PA/STONE DRESSER, reviewed EMR data (avail), discussed with nursing, discussed with case mgmt Attending Assessment/Plan: Will d/w pts family the heme/onc opinion about poor prognosis and pt not being a candidate for much treatment. Pt prefers to be going back to home so will d/w family about home with home hospice option. Severe anemia- with low iron stores. on po iron supplementation. pt is jevoha's witness and so not a candidate for blood transfusion.
[2018-02-07] MEDS ORDERED: FERROUS SULFAT325 M2 PO (07:24)
--- NOTE | 2018-02-07 07:30 | Patient Discharge Instructions ---
Discharge Instructions General Discharge Information You were seen/treated for: Acute Blood loss anemia Special Instructions: please continu to follow up with your PCP within one week of discharge. Diet Continue normal diet: Yes Acute Coronary Syndrome Inclusion Criteria At DC or during hospital stay patient has or had the following: ACS DIAGNOSIS No Discharge Core Measures Meds if any: Prescribed or Continued at Discharge Meds if any: NOT Prescribed or Continued at Discharge Congestive Heart Failure Inclusion Criteria At DC or during hospital stay patient has or had the following: CHF DIAGNOSIS No Discharge Core Measures Meds if any: Prescribed or Continued at Discharge Meds if any: NOT Prescribed or Continued at Discharge Cerebrovascular accident Inclusion Criteria At DC or during hospital stay patient has or had the following: CVA/TIA Diagnosis No Discharge Core Measures Meds if any: Prescribed or Continued at Discharge Meds if any: NOT Prescribed or Continued at Discharge Venous thromboembolism Inclusion Criteria VTE Diagnosis No VTE Type NONE VTE Confirmed by (Test) NONE Discharge Core Measures - Per Current guidelines, there needs to be overlap - treatment for the first 5 days of Warfarin therapy. - If discharged on Warfarin prior to 5 days of - overlap therapy, the patient will need to be - assessed for post discharge needs including - *Post discharge parental anticoagulation - *Warfarin and/or parental anticoagulation education - *Follow up date to check INR post discharge At least 5 days overlap therapy as Inpatient No Meds if any: Prescribed or Continued at Discharge Note: Overlap Therapy is Warfarin and Anticoagulant Meds if any: NOT Prescribed or Continued at Discharge
[2018-02-07 09:15] LABS: ABSOLUTE BASOPHIL COUNT 0 /CUMM (0.0-0.2); ABSOLUTE EOSINOPHIL COUNT 0.3 /CUMM (0.0-0.7); ABSOLUTE GRANULOCYTE CT 5.1 /CUMM (1.4-6.5); ABSOLUTE LYMPH COUNT 1.1 /CUMM (1.2-3.4); ABSOLUTE MONOCYTE COUNT 0.7 /CUMM (0.10-0.60); BASOPHIL % 0.5 % (0.0-2.0); EOSINOPHIL % 3.6 % (0-5); MEAN CORPUSCULAR HGB 24.2 PG (27.0-31.0); MEAN CORPUSCULAR VOLUME 75.7 FL (81.0-99.0); MEAN PLATELET VOLUME 7.7 FL (7.4-10.4); PLATELET COUNT 323 /CUMM (130-400); RBC DISTRIBUTION WIDTH 17.7 % (11.5-14.5); RED BLOOD CELL CT 2.42 /CUMM (4.20-5.40); WHITE BLOOD CELL COUNT 7.3 /CUMM (4.8-10.8)
[2018-02-07 09:35] LABS: HEMATOCRIT 18.3 % (37-47)
[2018-02-07 14:16] VITALS: BP 124/70
[2018-02-07 22:05] VITALS: BP 108/58
[2018-02-08 05:22] VITALS: BP 110/60
--- NOTE | 2018-02-08 07:23 | PN- Housestaff ---
Michael Meza 02/08/18 0723: Subjective Follow-up For: -acute GI blood loss -New GI mass ,preliminayr report say poorly differentiatied maligancy -Previous h/o untreated adenocarcinoma of lung. Review of Systems Constitutional: Reports: see HPI. Objective Last 24 Hrs of Vital Signs/I&O Vital Signs Date Time Temp Pulse Resp B/P B/P Pulse O2 O2 Flow FiO2 Mean Ox Delivery Rate 02/08 0522 99.0 89 20 110/60 95 Room Air 02/07 2205 99.6 100 20 108/58 94 Room Air 02/07 1416 98.9 91 18 124/70 97 Room Air 02/07 1335 Room Air 02/07 0800 Room Air Intake & Output 02/08 0800 02/08 0000 02/07 1600 Intake Total 860 640 Output Total 200 Balance 860 440 Intake, IV 160 160 Intake, Oral 700 480 Number 2 Bowel Movements Output, Urine 200 Physical Exam General Appearance: Cooperative, No Acute Distress Current Medications: Current Medications Sig/Lloyd Start time Last Medication Dose Route Stop Time Status Admin Acetaminophen 650 MG Q6H PRN 02/03 1845 AC 02/04 PO 1834 Atorvastatin Calcium 10 MG DAILY 02/04 0900 AC 02/07 PO 0920 Bupropion HCl 300 MG QAM 02/04 09 AC 02/07 PO 0919 Donepezil HCl 10 MG 0902/04 0900 AC 02/07 PO 0921 Duloxetine HCl 60 MG DAILY 02/04 0900 AC 02/07 PO 0921 Ferrous Sulfate 325 MG Q48 02/06 0900 AC 02/06 PO 0831 Gabapentin 300 MG QPM 02/03 2100 AC 02/07 PO 1950 Lidocaine 1 PAT DAILY@02/03 1900 AC 02/07 TOP 1950 Lorazepam 1 MG TID 02/03 2100 AC 02/07 PO 1950 Magnesium Oxide 400 MG BID 02/07 0900 DC 02/07 PO 02/07 Meclizine HCl 12.5 MG BID 02/03 2100 AC 02/07 PO 1950 Morphine Sulfate 1 MG Q6-PRN PRN 02/05 0045 AC 02/08 IV 0618 Oxycodone HCl 5 MG Q6 PRN 02/05 0015 AC 02/07 PO 1535 Pantoprazole Sodium 40 MG Q5H 05/26 1715 AC 02/08 Sodium Chloride 100 ML IV 0310 Phytonadione 5 MG DAILY 02/03 1705 AC 02/07 PO 0920 Last 24 Hrs of Lab/Herbie Results Last 24 Hrs of Labs/Mics: Laboratory Tests 02/07/18 0735: CBC w Diff NO MAN DIFF REQ, RBC 2.42 L, MCV 75.7 L, MCH 24.2 L, MCHC 32.0 L, RDW 17.7 H, MPV 7.7, Gran % 71.0, Lymphocytes % 15.4 L, Monocytes % 9.5 H, Eosinophils % 3.6, Basophils % 0.5, Absolute Granulocytes 5.1, Absolute Lymphocytes 1.1 L, Absolute Monocytes 0.7 H, Absolute Eosinophils 0.3, Absolute Basophils 0 Lines/Diet/Fluids Restraints: none Assessment/Plan Assessment: Mrs Johnson 72-year-old lady with past medical history of adenomatous colonic polyps, hyperparathyroidism, previously diagnosed left lung and no carcinoma ( never treated with chemotherapy or radiation), previous multiple falls, hyperlipidemia, dementia, diverticulosis, Mnire's disease, essential tremor was brought in by ambulance from [facility] as she was found to be hypotensive. Blood pressure at [facility] was found to be 80/50 mmHg. Upon arrival to emergency department she was afebrile, pulse of 78, respiration of 20, blood pressure was 84/42, she was 96% saturating on room air. Gradually she was admitted to ICU, downgraded to general medicine floor once stable. Problem List along with Assessment and plan : Acute blood loss anemia 2/2 gastric mass: * She is [place], no blood transfusions, even if life threatening situation. * Continue iv protonix * discussed with the patient's healthcare proxy and eldest daughter. She explained the findings at EGD as well as overall prognosis, discussed that the lesions in the gastric lumen were not removed endoscopically given concerns regarding precipitation of massive bleeding which would be untenable in light of Ms. Knight's refusal to accept blood products. * Further we discussed that these were likely to continue to bleed episodically and that her hemoglobin was already dangerously low. * She explained that given the progression of her lung cancer as well as the possibility that she now has bony metastases that consideration should be given to making Mrs. Knight a DNR/DNI and involving hospice/palliative care. * Case discussed with heme oncology, there is no other option to blood transfusion, prognosis poor, will hold a family meeting tomorrow at 10am to discuss goals of care or if there are any options for further treatment at all that is acceptable to the patient 2. Untreated adenocarcinoma of the left lung, Now new Gastric mass suspected malignancy ( priamry versus metastasis) * Possible metastatic from the suspected gastric carcinoma: This time around during EGD she was found to have antral masses which were bleeding, a biopsy was taken and the preliminary report of the biopsy was discussed with the laboratory and it was found to be a poorly differentiated malignancy, further identification of the actual type of carcinoma awaiting (Of note,Patient does have a biopsy of the lung mass in 2013 which showed adenocarcinoma, non-mucinous, that was not treated.Patient was also found to have cecal mass, she underwent immunohistochemical stain evaluation to determine the primary site of the lung and colon.) * we will continue to follow the results however in this situation perhaps if she does not agree with the blood transfusion, tolerating chemotherapy/radiation if at all indicated does not look a possibility, and heading in that direction of goals of care discussion. 3. New healing fracture involving posteromedial aspect of the left 6th rib * CT chest showed a spiculated mass of 4.1 X and 0.4 cm in the left lung apex which has increased in size, second lobulated oval mass at the left lower lobe of the lung currently measuring 3.5 X 3.4 centimeter, also progressed in size ? bony metastasis * ct conservative mx and pain mx for 6th rib healing fracture. 4. UTI * Initially started on treatment, however stable with no sign of infection, ax d /c 5. MILAN * resolved with iv hydration * creatinine at baseline ( 0.9) 6. hypomg/hypok * potassium normalised, mg supplemented today. 7. GOals of CAre * Family meeting today with daughter eloina to further discuss golas of care and hodpice. DVT prophylaxis: Alps She is a DNR/DNI advanced as tolerated. Problem List: 1. Suspected malignant neoplasm 2. Lung mass 3. MILAN (acute kidney injury) 4. GI bleed Pain Ratin Pain Location: ,, Pain Goal: Remain pain free Pain Plan: .. Tomorrow's Labs & Rationales: .. Kraig Quintana 02/08/18 3783: Attending MD Review Statement Attending Statement Attending MD Statement: examined this patient, discuss w/resident/PA/UNIVERSITY ARCHIVIST, agreed w/resident/PA/UNIVERSITY ARCHIVIST, discussed with family, reviewed EMR data (avail), discussed with nursing, discussed with case mgmt Attending Assessment/Plan: Had family meeting this morning to discuss the goals of care . it was decided to go for hospice care at a NH . Pt is being dced to NH with hospice care. d/w pt and pts family at bedside the care plan. see dc summary for more details.
[2018-02-08 11:56] VITALS: BP 110/60
--- NOTE | 2018-02-08 12:24 | Event Note ---
Event Note Event Note: Situation : Goals of care. Brief : Family meeting was held today with her daughter Lyn, and other family members, her prognosis was discussed in the setting of not receiving blood products and a new GI mass, with previous lung adenocarcinoma, possible bony metastasis, with a hemoglobin as low as 5.9. Assessment: poor prognosis with possible GI cancer with metastasis ans severe anemia with no blood products as jehovah witness. Plan : After the family meeting, the family decided to pursue hospice care once discharged to [facility].
== END 2018-02-08 14:54 | DRG 375 ==
LOC: ERH 12:39 → ERHI 16:23 → 2NA 16:23 → EDBEDREQ 16:39 → ENTRNSPT 17:28 → EDTRNSPTSTS 17:38 → EDTRNSPT 17:38 → CMPTRNSPT 18:04 → 2NA 18:09 → CRI 18:09 → ENTRNSPT 02-05 12:40 → EDTRNSPT 02-05 12:56 → EDTRNSPTSTS 02-05 12:56 → 2NA 02-05 13:46 → CMPTRNSPT 02-05 13:48 → 2NA 02-07 08:12 → ENPENDDIS 02-08 12:50 → 2NA 02-08 14:54
PROVIDERS: Internal Medicine; Physician Assistant Medical; Student in an Organized Health Care Education/Training Program
PROC: 0DB68ZX Excision of Stomach, Via Natural or Artificial Opening Endoscopic, Diagnostic (ICD-10-PCS; principal; 2018-02-04)
PROC: 0W3P8ZZ Control Bleeding in Gastrointestinal Tract, Via Natural or Artificial Opening Endoscopic (ICD-10-PCS; principal; 2018-02-04)
DX: C16.9 Malignant neoplasm of stomach, unspecified (principal); K92.2 Gastrointestinal hemorrhage, unspecified; N17.9 Acute kidney failure, unspecified; C34.90 Malignant neoplasm of unspecified part of unspecified bronchus or lung; D62 Acute posthemorrhagic anemia; D68.9 Coagulation defect, unspecified; E83.42 Hypomagnesemia; F03.90 Unspecified dementia, unspecified severity, without behavioral disturbance, psychotic disturbance, mood disturbance, and anxiety; Z51.5 Encounter for palliative care; H81.09 Meniere's disease, unspecified ear; S00.11XA Contusion of right eyelid and periocular area, initial encounter; W18.30XA Fall on same level, unspecified, initial encounter; Y93.89 Activity, other specified; Y92.121 Bathroom in nursing home as the place of occurrence of the external cause; Z91.81 History of falling; N32.81 Overactive bladder; E87.6 Hypokalemia; E78.5 Hyperlipidemia, unspecified; K57.90 Diverticulosis of intestine, part unspecified, without perforation or abscess without bleeding; Z79.51 Long term (current) use of inhaled steroids; Z88.1 Allergy status to other antibiotic agents; Z88.8 Allergy status to other drugs, medicaments and biological substances; Z66 Do not resuscitate; Z53.1 Procedure and treatment not carried out because of patient's decision for reasons of belief and group pressure
CPT/HCPCS: 2NASP; CCU; 36415; 36592; 74176; 80307; 81001; 82436; 87086; 93005; 93010; 96360; J0171; J0696